=== PATIENT | male | born 1955 | race Two or more races ===

== ENCOUNTER 2016-06-17 06:49 | Observation (INO) | payer OTHER ==
[2016-06-17] MEDS ORDERED: ASPIRIN EC 325 MG TAB PO ONE ×2 (06:54→07:29)
[2016-06-17] MEDS ORDERED: NS 1,000 ML IV ONE (06:54)
[2016-06-17] MEDS ORDERED: FAMOTIDINE 20 MG TAB PO ONE (06:54)
[2016-06-17] MEDS ORDERED: diphenhydrAMINE 25 MG CAP PO ONE ×2 (06:54→07:29)
[2016-06-17] MEDS ORDERED: DIAZEPAM 5 MG TAB PO ONE (06:54)
--- NOTE | 2016-06-17 07:15 | CPEKG ---
Heart Rate: 136 RR Interval: 441 QRSD Interval: 84 QT Interval: 344 QTC Interval: 518 QRS [place]: 40 T Wave [place]: -30 EKG Severity - ABNORMAL ECG - EKG Impression: ATRIAL FIBRILLATION EKG Impression: VENTRICULAR PREMATURE COMPLEX EKG Impression: LOW VOLTAGE THROUGHOUT EKG Impression: BORDERLINE T ABNORMALITIES, INFERIOR LEADS Electronically Signed By: Salvatore Mcgovern 17-Jun-2016 15:41:51
[2016-06-17] MEDS ORDERED: FAMOTIDINE 20 MG TAB ONE (07:29)
[2016-06-17] MEDS ORDERED: DIAZEPAM 5 MG TAB ONE (07:29)
[2016-06-17 07:36] LABS: % IMMATURE GRANULYOCYTES 0.4 % (0.0-1.1); ABSOLUTE IMMATURE GRANULOCYTES 0.02 10^3/uL (0.00-0.10); ADD DIFF? NO; ADD MORPH? YES; ADD SCAN? NO; ATYPICAL LYMPHOCYTE FLAG 20 (0-99); FRAGMENT RBC FLAG 20 (0-99); HEMOGLOBIN 9.2 g/dL (13.7-17.5); LEFT SHIFT FLG 0 (0-99); LIPEMIA HEMOLYSIS FLAG 70 (0-99); MEAN CELL HEMOGLOBIN 19.3 pg (27.9-34.1); MEAN PLATELET VOLUME 10.5 fL (8.7-11.7); PLATELET CLUMPS FLAG 20 (0-99); PLATELET COUNT 183 10^3/uL (150-400); RED BLOOD CELL COUNT 4.77 10^6/uL (4.40-6.38); RED CELL DISTRIBUTION WIDTH 19.6 % (11.5-15.2)
[2016-06-17 07:44] LABS: MEAN CELL HEMOGLOBIN CONCENTR. 28.8 g/dL (32.4-36.7); MEAN CELL VOLUME 67.1 fL (81.5-99.8)
[2016-06-17 07:46] LABS: INR 1.19 (0.83-1.16); PROTIME(PATIENT) 15.1 SEC (12.0-15.0)
[2016-06-17 07:59] LABS: ANION GAP 11 mEq/L (8-16); CALCIUM 8.6 mg/dL (8.5-10.4); CARBON DIOXIDE 25 mEq/l (22-31); CHLORIDE 106 mEq/L (97-110); CHOLESTEROL 137 mg/dL (140-220); CHOLESTEROL/HDL RATIO 5.96 RATIO (1.00-4.97); CREATININE 0.7 mg/dL (0.7-1.3); GLOMERULAR FILTRATION RATE > 60; GLUCOSE 179 mg/dL (70-100); HIGH DENSITY LIPOPROTEIN 23 mg/dL (40-65); LDL/HDL RATIO 4.22 RATIO (1.00-3.64); LOW DENSITY LIPOPROTEIN 97 mg/dL (80-100); NON-HIGH DENSITY LIPOPROTEIN 114 mg/dL (90-129); POTASSIUM 4.5 mEq/L (3.5-5.2); SODIUM 142 mEq/L (134-144); TRIGLYCERIDE 88 mg/dL (40-150); VERY LOW DENSITY LIPOPROTEINS 17 mg/dL (8-25)
[2016-06-17] MEDS ORDERED: fentaNYL 100 MCG/2 ML INJ ONE (08:15)
[2016-06-17] MEDS ORDERED: MIDAZOLAM 2 MG/2 ML VIAL ONE ×2 (08:15→09:56)
[2016-06-17] MEDS ORDERED: LIDOCAINE 1% 30 ML SDV ONE (08:15)
[2016-06-17] MEDS ORDERED: IOPAMIDOL (ISOVUE-370) 150 ML BTL IV ONE ×2 (08:16→08:18)
[2016-06-17 08:20] LABS: GIANT PLATELETS PRESENT; HYPOCHROMIA 2+; LARGE PLATELETS PRESENT; MICROCYTES 2+; PLATELET ESTIMATE ADEQUATE (ADEQ); POLYCHROMASIA 1+
[2016-06-17] MEDS ORDERED: ATROPINE SULFATE 1 MG/10 ML SYR ONE (10:35)
[2016-06-17] MEDS ORDERED: HYDROCODONE/APAP 5/325 TAB PO PRN (10:44)
[2016-06-17] MEDS ORDERED: ATROPINE SULFATE 1 MG/10 ML SYR IVP PRN (10:44)
[2016-06-17] MEDS ORDERED: ONDANSETRON 4 MG/2 ML VIAL IVP PRN (10:44)
[2016-06-17] MEDS ORDERED: NITROGLYCERIN 0.4 MG BTL SL PRN (10:44)
[2016-06-17] MEDS ORDERED: OXYCODONE/APAP 5/325 TAB PO PRN (10:44)
--- NOTE | 2016-06-17 11:39 | CPIP ---
[f rep st] INVASIVE CARDIAC PROCEDURE DATE OF PROCEDURE: 06/17/2016 PROCEDURES: 1. Coronary angiography. 2. Left ventriculography. 3. Right heart catheterization. 4. Abdominal aortography. 5. Left lower extremity angiography via contralateral approach with catheter placed in the left supe rficial femoral artery. 6. Right lower extremity angiography via ipsilateral approach with catheter placed in the right comm on iliac artery. INDICATION: 1. Dyspnea on exertion concerning for class 3 angina. 2. Limb pain concerning for claudication. ACCESS: Patient was prepped and draped in sterile fashion. 1% lidocaine was used to anesthetize the right inguinal region. A 7-Haitian introducer sheath was placed selectively into the right common fe moral artery via modified Seldinger technique. A 7-Haitian introducer sheath was also placed in the r ight common femoral vein via modified Seldinger technique. CORONARY ANGIOGRAPHY: A 6-Haitian JL4 was advanced to the left main coronary artery and images obtain ed. The left main coronary artery bifurcated into an LAD and circumflex coronary arteries. The left main coronary artery appeared normal. The left anterior descending coronary artery had mild luminal irregularities in the mid vessel. There was no stenosis greater than 5% the first diagonal artery w as a large vessel. The first diagonal artery appeared normal. The circumflex coronary artery is a l arge vessel, but was nondominant. Circumflex coronary artery had mild diffuse disease in the proxima l segments. There was no stenosis greater than 10%. The 1st OM artery was small and had an ostial 5 0% stenosis present. A 6-Haitian JR4 was advanced to the right coronary artery and images obtained. The right coronary artery is dominant. The right coronary artery had mild diffuse disease in the mid vessel. There was no stenosis greater than 15%. LEFT VENTRICULOGRAPHY: A 6-Haitian pigtail catheter was advanced in the left ventricle and images obt ained. Left ventricle was normal in size with reduced systolic function. Estimated ejection fractio n is 20%. There is global left ventricular hypokinesis. The left ventricular end-diastolic pressure was elevated at 30 mmHg. RIGHT HEART CATHETERIZATION: Right heart catheter was advanced in the right atrium and pressure obta ined. Right atrial pressure was 20 mmHg. The catheter was then advanced in the right ventricle and pressure obtained. The right ventricular pressure was 58/20 mmHg. The catheter was then advanced in the pulmonary artery and pressure obtained. The pulmonary artery pressure was 57/34 mmHg with a moriah n pulmonary artery pressure of 43 mmHg. The pulmonary capillary wedge pressure was 28 mmHg. Pulmona ry artery saturation was 29%. Femoral artery saturation was 86%. Cardiac index 1.76. Cardiac outpu t 4.06. ABDOMINAL AORTOGRAPHY: A 6-Haitian pigtail catheter was placed in the abdominal aorta. An image was obtained. The abdominal aorta had mild luminal irregularities in the mid to distal segments. It the n bifurcated into the left and right common iliac arteries. LEFT LOWER EXTREMITY ANGIOGRAPHY VIA CONTRALATERAL APPROACH WITH CATHETER ULTIMATELY PLACED IN THE LE FT SUPERFICIAL FEMORAL ARTERY: A Contra II catheter was advanced into the distal abdominal aorta and position verified by angiography. It was reformed into its usual position and used to selectively e ngage the left common iliac artery. The left common iliac artery bifurcated into an internal iliac a rtery and external iliac artery. The proximal segment of the left common iliac artery had a single d iscrete 20% stenosis present. The ostial segment of the left internal iliac artery had a single disc rete 20% stenosis present. The proximal portion of the left external iliac artery had a single discr ete 40% stenosis present. The catheter was then advanced into the left external iliac artery over a Glidewire and images obtained. The left external iliac artery turned into the left common femoral ar prudencio and then bifurcated into the superficial femoral artery and profunda femoral artery. The left c ommon femoral artery appeared free of any significant disease. The left profunda femoral artery appe ared free of any significant disease. A Glidewire was then advanced into the left superficial femora l artery and the Contra II catheter exchanged for a straight flush catheter. Images of the lower ext remity were then obtained. The left superficial femoral artery had mild diffuse disease throughout. There was no stenosis greater than 20%. The left superficial femoral artery turned into the poplite al artery, which is free of any significant disease. Below the knee, there is 3-vessel runoff. RIGHT LOWER EXTREMITY ANGIOGRAPHY VIA IPSILATERAL APPROACH WITH CATHETER PLACED IN THE RIGHT COMMON I LIAC ARTERY: The angled Glidewire was then advanced and the straight flush catheter was withdrawn in to the right common iliac artery and images obtained via hand injection. The right common iliac emelina ry bifurcated into an internal iliac artery and external iliac artery. The right common iliac artery had a proximal 20% stenosis present. The right internal iliac artery was diffusely diseased and had an ostial 30% stenosis present. The right external iliac artery had a proximal 20-30% stenosis pres ent. The right external iliac artery turned into the common femoral artery and then bifurcated into the superficial femoral artery and profunda femoral artery. The right common femoral artery is free of any significant disease. The right profunda femoral artery is free of any significant disease. T he right superficial femoral artery had mild diffuse disease throughout. In the proximal segment, th ere is a single discrete 20% stenosis present. In the mid to distal segment there is a single discre te 20% stenosis present. The right superficial femoral artery then turned into the popliteal artery. The popliteal artery was free of any significant disease. Below the knee there is 3-vessel runoff. COMPLICATIONS: None. CONCLUSIONS: 1. Mild coronary artery disease without flow limitation. 2. Severely reduced left ventricular systolic function with an estimated ejection fraction 20% and g lobal hypokinesis. 3. Marked pulmonary hypertension with a mean pulmonary artery pressure of 43 mmHg. The trans pulmon jose maria gradient was 15 mmHg indicating a component of left heart failure in addition to a primary pulmon jose maria hypertension component. 4. [id number] peripheral vascular disease without flow limitation. /[id number]/MODL
[2016-06-17] MEDS ORDERED: METOPROLOL SUCCINATE XR 100 MG TAB PO SCH (15:00)
[2016-06-17] MEDS: GABAPENTIN 300 MG CAP PO SCH ×2 (15:22→21:30)
[2016-06-17] MEDS: LISINOPRIL 20 MG TAB PO SCH (15:24)
--- NOTE | 2016-06-17 16:36 | SOAPPROG ---
SARAH Progress Note Assessment/Plan: Assessment: 61-year-old male presenting with atrial fibrillation with rapid ventricular response, cardiomyopathy as noted on left ventriculography today with left ventricular ejection fraction of 20%. No significant coronary artery disease noted. Most likely etiology for cardiomyopathy is tachycardia mediated myopathy , combined with alcohol induced cardiomyopathy. While he states that he has cut back on his alcohol intake he had 7 beers while watching the recent [employer] game. Majority of the episodes of wide complex tachycardia are consistent with atrial fibrillation with aberrancy though there are some episodes that are consistent with nonsustained ventricular tachycardia My recommendations are 1. Discontinue Tikosyn since it is not effective. Not using amiodarone because of his pre-existing lung disease. 2. Increase metoprolol from 150 mg a day to 100 mg twice a day, increase dosing further as tolerated. We will need to keep him in the hospital for the next several days to try and better control his ventricular rate. 3. Patient has quit smoking 2 weeks ago, he has been advised not to start again. 4. He has been asked to abstain from alcohol. 5. Place a life vest while medical therapy is being adjusted for the next 3 months. 6. If after 3 months left ventricular ejection fraction is less than 35%, consider implantation of a defibrillator. If ventricular rate is still not controlled, consider biventricular ICD implantation followed by AV node ablation. His case was discussed with Dr. Quintana. Because of arterial access Dr. Quintana would like to hold off on resuming anticoagulation for 24 hours, Xarelto should be resumed tomorrow evening. 06/17/16 16:36 Subjective: Patient known to me from prior clinic visit. Presented with cardiomyopathy, WCT seen on telemetry. Dr. Quintana asked me to visit with patient. His was present in the room for this discussion Objective: Vital Signs Temp Pulse Resp BP Pulse Ox 36.5 C 126 H 25 H 140/96 H 92 06/17/16 15:31 06/17/16 15:31 06/17/16 15:31 06/17/16 15:31 06/17/16 15:31 Laboratory Results 06/17/16 07:20 06/17/16 07:20 PT 15.1 SEC (12.0-15.0) H 06/17/16 07:20 INR 1.19 (0.83-1.16) H 06/17/16 07:20 - Time Spent With Patient Time Spent With Patient: 25 min - Pending Discharge Pending Discharge Within 24 Hours: No Pending Discharge Within 48 Hours: Yes Pending Discharge Date: 06/19/16 Pending Discharge Time: 11:00 Physical Exam - Physical Exam General Appearance: mild distress EENT: PERRL/EOMI Respiratory: decreased breath sounds Cardiac/Chest: irregularly irregular ICD10 Worksheet Patient Problems: Problems Problem Status Diagnosed Atrial fibrillation Acute Cardiomyopathy Acute - ICD10 Problem Qualifiers (1) Cardiomyopathy Qualifiers: Cardiomyopathy type: other Qualified Description: Other cardiomyopathy Qualifier Code(s): (I42.8) Other cardiomyopathies (2) Atrial fibrillation
[2016-06-17] MEDS: glipiZIDE 5 MG TAB PO SCH (18:11)
[2016-06-17] MEDS ORDERED: INSULIN GLARGINE 100 UNITS/ML SYRINGE SC SCH (21:00)
[2016-06-18] MEDS: glipiZIDE 5 MG TAB PO SCH ×2 (08:58→17:18)
[2016-06-18] MEDS: GABAPENTIN 300 MG CAP PO SCH ×2 (08:58→17:18)
[2016-06-18] MEDS: LISINOPRIL 20 MG TAB PO SCH ×2 (08:58→19:39)
[2016-06-18] MEDS ORDERED: Fluticasone/Vilanterol [Breo Ellipta 100-25 Mcg Inh] 1 EACH IH SCH (09:00)
[2016-06-18] MEDS ORDERED: ATORVASTATIN CALCIUM 10 MG TAB PO SCH (09:00)
[2016-06-18] MEDS ORDERED: PANTOPRAZOLE SODIUM 40 MG TAB PO SCH (09:00)
[2016-06-18] MEDS ORDERED: MULTIVITAMINS 1 EACH TAB PO SCH (09:00)
[2016-06-18] MEDS: METOPROLOL SUCCINATE XR 100 MG TAB PO SCH ×2 (09:02→19:38)
--- NOTE | 2016-06-18 14:18 | GDS ---
[f rep st] DISCHARGE SUMMARY PRIMARY PRIMER INSPECTOR: Dr. Salvatore Mcgovern. The patient is also under the care of Dr. Emanuel Quintana and Dr. Kaden Solomon. DISCHARGE DIAGNOSES: 1. Nonsustained ventricular tachycardia, discharge with LifeVest. 2. Nonischemic cardiomyopathy with an ejection fraction of 20%. 3. Atrial fibrillation. 4. Newly diagnosed hepatitis C. 5. Mild coronary artery disease. 6. Mild to moderate peripheral vascular disease. 7. Pulmonary hypertension. 8. Diabetes. 9. Hyperlipidemia. HOSPITAL COURSE: For detailed H and P, please see prior dictation. Briefly, Kelby Olmstead is a 61-year-old male with a history of atrial fibrillation and congestive heart failure. He was complaining of severe claudication and therefore, he was electively admitted for a left and right heart catheterization , as well as a peripheral angiogram. This was performed by Dr. Emanuel Quintana on June 17. He was found to have mild CAD with mild to moderate peripheral vascular disease. His ejection fraction was severely reduced with global hypokinesis and an ejection fraction of 20%. While being monitored on telemetry , he was having atrial fibrillation with rapid ventricular rates, as well as multiple runs of nonsustained ventricular tachycardia. His metoprolol was increased from 150 mg daily to 100 mg b.i.d. with an improvement in his rates. Tikosyn was discontinued because it was not working. He does have a history of tobacco and alcohol use. He states that he has not been drinking regularly, but did have at least 7 drinks during a football game a few weeks ago. His cardiomyopathy is thought to be related to tachycardia, as well as alcohol- induced. He had a consultation with Dr. Kaden Solomon, who felt like with lifestyle changes and adjustments in his medical therapy, his symptoms and ejection fraction would improve. During his angiogram, Dr. Quintana did receive a splash from the patient. He was tested for hepatitis C and was found to be positive. ID was consulted and requested outpatient consultation. PHYSICAL EXAMINATION: VITAL SIGNS: On the day of discharge blood pressure 112/ 76, heart rate 112, oxygen saturation 93% on 3 L, afebrile. LUNGS: Clear to auscultation. No wheezes, rhonchi, or crackles auscultated. CARDIAC: Irregular rate and rhythm without any significant murmurs, rubs, or gallops appreciated. EXTREMITIES: No evidence of edema. The right groin where access was obtained for the angiogram does show significant ecchymosis without hematoma or evidence of infection. DISCHARGE MEDICATIONS: Metoprolol succinate 100 mg b.i.d., Lipitor 10 mg daily , Neurontin 600 mg t.i.d., Lantus 30 units subcu at bedtime, lisinopril 20 mg b.i.d., multivitamin daily, Protonix 20 mg daily, albuterol p.r.n., Lasix 20 mg b.i.d., Xarelto 20 mg daily to be resumed today, amlodipine 2.5 mg daily, glipizide 5 mg b.i.d., metformin a 1000 mg b.i.d. and will be held for 48 hours post angiogram, Percocet 5/325 mg p.r.n. PLAN: Kelby will be discharged home pending receiving his LifeVest. He was found to have nonsustained ventricular tachycardia, as well as atrial fibrillation without rapid ventricular rates. His metoprolol was increased with an improvement in his rates. Tikosyn has been discontinued because it was not successful. Lifestyle modifications were discussed with him today. He needs to focus on weight loss, continuing to reduce his alcohol intake, and not to smoke. We will plan to reassess his ejection fraction in 3 months. He is currently scheduled for a limited echo on September 16 at 10 a.m. in our office. He will then follow up with Dr. Solomon on 09/19/2016 at 10:30 in our office. If his rates are not well controlled at that time, he would be a candidate for a Bi V ICD and AV abigail ablation. If his EF remains low, but his rates are well controlled he would be a candidate for an ICD at that time. He will follow up with Dr. Mcgovern on 07/01/2016 at 9:45. He is aware that he is to resume his Xarelto tonight. He will also hold his metformin for 48 hours post cath procedure. ID was consulted, and the patient has been given their information to call and schedule a consultation with Dr. Sander Lowry for newly identified hepatitis C. Greater than 30 minutes were spent coordinating the patient's care today. /[id number]/MODL MTDD
[2016-06-18 16:52] VITALS: BP 95/74; PULSE 106; RESP 20; TEMP 99; O2SAT 92
== END 2016-06-18 19:48 | disposition home or self-care (01) ==
LOC: FCATH 06:49 → F2W 10:19
PROVIDERS: ADMIT Internal Medicine Cardiovascular Disease; ATTEND Internal Medicine Cardiovascular Disease
PROC: 4A023N8 Measurement of Cardiac Sampling and Pressure, Bilateral, Percutaneous Approach (ICD-10-PCS; principal; 2016-06-17)
PROC: B2111ZZ Fluoroscopy of Multiple Coronary Arteries using Low Osmolar Contrast (ICD-10-PCS; 2016-06-17)
PROC: B2151ZZ Fluoroscopy of Left Heart using Low Osmolar Contrast (ICD-10-PCS; 2016-06-17)
PROC: 04HL33Z Insertion of Infusion Device into Left Femoral Artery, Percutaneous Approach (ICD-10-PCS; 2016-06-17)
PROC: 04HC33Z Insertion of Infusion Device into Right Common Iliac Artery, Percutaneous Approach (ICD-10-PCS; 2016-06-17)
DX: I47.2 Ventricular tachycardia (principal); I42.9 Cardiomyopathy, unspecified; R06.02 Shortness of breath; I27.2 Other secondary pulmonary hypertension; I73.9 Peripheral vascular disease, unspecified; I50.32 Chronic diastolic (congestive) heart failure; I48.91 Unspecified atrial fibrillation; I25.10 Atherosclerotic heart disease of native coronary artery without angina pectoris; B19.20 Unspecified viral hepatitis C without hepatic coma; E11.9 Type 2 diabetes mellitus without complications; E78.5 Hyperlipidemia, unspecified; F17.200 Nicotine dependence, unspecified, uncomplicated; J44.9 Chronic obstructive pulmonary disease, unspecified; I10 Essential (primary) hypertension; G47.30 Sleep apnea, unspecified; E66.01 Morbid (severe) obesity due to excess calories; Z79.01 Long term (current) use of anticoagulants; Z82.49 Family history of ischemic heart disease and other diseases of the circulatory system; Z68.42 Body mass index [BMI] 45.0-49.9, adult; Z98.1 Arthrodesis status
CPT/HCPCS: 36245; 36247; 75630; 75716; 93005; 93460; C1769; G0378; J1644; J1815; J2250; J3010; Q9967; J0461

== ENCOUNTER 2016-07-03 19:32 | Inpatient (IN) | payer OTHER ==
--- NOTE | 2016-07-03 19:46 | EDPHY ---
H & P HPI/ROS: CHIEF COMPLAINT: Tachycardia HISTORY OF PRESENT ILLNESS: This is a 61 year old male with a history of cardiomyopathy, atrial fibrillation and nonsustained ventricular tachycardia, with a LifePack maintenance craftsman, presenting via private vehicle with tachycardia. His maintenance craftsman has been going off all day. He is complaining of shortness of breath and anxiety but no chest pain. His cardiac keeps alarming today. He has been turning off the alarm before he is shocked, as his doctor recommended he not allow it to shock him while he is awake. He was admitted 2 weeks ago for similar sx and discharged home on metoprolol. The LifePack was placed on discharge. He had a cardiac catheterization on 06/15/2016 which revealed EF 20% and mild CAD. REVIEW OF SYSTEMS: A complete 10-point review of systems was performed and is negative except for those items mentioned in the HPI. Past Medical/Surgical History: Vtach, afib Cardiomyopathy Social History: Nonsmoker, Accountant Cost: Dr. Solomon Smoking Status: Current every day smoker Physical Exam: General Appearance: Alert, anxious Eyes: Pupils equal and round, no conjunctival pallor ENT, Mouth: Mucous membranes moist Neck: Normal inspection Respiratory: Lungs are clear to auscultation Cardiovascular: Irregular tachycardia Gastrointestinal: Abdomen is soft, distended and non-tender Neurological: A&O, nonfocal exam Skin: Warm and dry, no rash Extremities: Nontender Psychiatric: Anxious Constitutional: Initial Vital Signs Heart Rate 204 H 07/03/16 19:49 Respiratory Rate 30 H 07/03/16 19:49 Blood Pressure 104/88 H 07/03/16 19:49 O2 Sat (%) 94 07/03/16 19:49 O2 Delivery Mode Non-Rebreather Mask O2 (L/minute) 4 Allergies/Adverse Reactions: No Known Allergies Allergy (Unverified 08/02/13 07:16) Home Medications: Medication Instructions Recorded Albuterol [Proventil Inhaler HFA 1 - 2 puffs IH DAILY PRN 06/17/16 (*)] Atorvastatin Calcium [Lipitor 10 10 mg PO DAILY 06/17/16 mg (*)] Fluticasone/Vilanterol [Breo 1 each IH DAILY 06/17/16 Ellipta 100-25 Mcg INH] Insulin Glargine [Lantus 100 30 units SC HS 01/09/17 UNITS/ML (*)] Lisinopril [Zestril 20 mg (*)] 20 mg PO BID 06/17/16 Multivitamins [Multivitamin (*)] 1 each PO DAILY 06/17/16 Pantoprazole Sodium [Protonix 40mg 40 mg PO DAILY 06/17/16 (*)] Rivaroxaban [Xarelto 10mg (*)] 20 mg PO DAILY 06/17/16 glipiZIDE [Glipizide] 5 mg PO BIDMEAL 06/17/16 metFORMIN HCL [Glucophage 500 mg 1,000 mg PO BIDMEAL 06/17/16 (*)] oxyCODONE/APAP 5/325 [Percocet 1 tab PO Q6 PRN 06/17/16 5/325 (*)] Digoxin [Lanoxin 0.25 mg] 0.25 mg PO DAILY 07/03/16 Dofetilide [Dofetilide] 500 mg PO BID 07/03/16 Furosemide [Furosemide] 40 mg PO BID 07/03/16 Gabapentin [Gabapentin] 600 mg PO BID 07/03/16 Metoprolol Succinate Xr [Toprol Xl 100 mg PO DAILY 07/03/16 100 mg (*)] Medical Decision Making - Diagnostics EKG Interpretation: EKG interpreted by me reveals runs of nonsustained vtach alternating with atrial fibrillation. Imaging: Chest x-ray reviewed by Dr. Flores, radiology, reveals: Enlargement the cardiac silhouette, with small bilateral pleural effusions. ED Course/Re-evaluation: I saw this pt shortly after his arrival. He is quite anxious and his maintenance craftsman keeps alarming. On arrival the patient was placed on a maintenance craftsman , and moved to a resuscitation room. Monitor reveals an intermittent wide complex tachycardia, which is most c/w Vtach. BP is adequate. 150mg IV Amiodarone was administered for ventricular tachycardia. He was placed on an Amiodarone drip. Dr. Solomon, cardiology, was paged. I reviewed the patient's past medical notes. I removed the life pack and the patient's anxiety resolved. 1952: Reassessed patient. He tells me he on 2-3L oxygen at home. He is feeling slightly better after the amiodarone. 1958: Consulted with Dr. Solomon, cardiology. He is aware of the patient and agrees with the medication choice. He requests hospitalist admission and will see the patient in the hospital in the morning. I discussed this with the patient at this time and answered his questions. The patient's BP remains adequate, and he continues to feel better. The episodes of Vtach continue, but are less frequent and of shorter duration. 2040: Consulted with Dr. Pierre, hospitalist, who has spoken to Dr. Solomon, cardiology. Dr. Solomon will admit the patient to the ICU. Dr. Pierre will consult. This pt utilized 40 minutes of critical care time by me exclusive of unbundled procedures. Differential Diagnosis: Differential diagnosis includes does not limited to acute coronary syndrome, pulmonary edema, hypotension, sustained ventricular tachycardia, ventricular fibrillation. - Data Points Laboratory Results: Laboratory Results 07/03/16 19:48 07/03/16 19:48 Medications Given: Discontinued Medications Amiodarone HCl (Amiodarone Hcl) 400 mg PO BID DULCE MARIA Stop: 12/31/16 20:59 Last Admin: 07/04/16 19:51 Dose: 400 mg Digoxin (Lanoxin) 250 mcg PO DAILY DULCE MARIA Stop: 12/31/16 08:59 Last Admin: 07/04/16 08:51 Dose: 250 mcg Furosemide (Lasix) 40 mg PO BID DULCE MARIA Stop: 12/31/16 08:59 Last Admin: 07/04/16 08:51 Dose: 40 mg Gabapentin (Neurontin) 600 mg PO TID DULCE MARIA Stop: 12/30/16 21:59 Last Admin: 07/04/16 08:50 Dose: 600 mg Amiodarone HCl (Amiodarone Hcl) 100 mls @ 600 mls/hr IV ONCE ONE Stop: 07/03/16 20:09 Last Admin: 07/03/16 19:46 Dose: 100 mls Amiodarone HCl (Amiodarone Hcl) 200 mls @ 33.333 mls/hr IV ONCE ONE PRN Reason: Protocol Stop: 07/04/16 01:59 Last Admin: 07/03/16 20:14 Dose: 200 mls Amiodarone HCl 540 mg/ (Dextrose) 300 mls @ 16.667 mls/hr IV ONCE ONE PRN Reason: Protocol Stop: 07/04/16 19:59 Last Admin: 07/04/16 01:40 Dose: 300 mls Sodium Chloride (Ns) 500 mls @ 0 mls/hr IV ONCE ONE PRN Reason: Wide Open Stop: 07/03/16 20:01 Last Admin: 07/03/16 20:00 Dose: 500 mls Amiodarone HCl (Amiodarone Hcl) 200 mls @ 33.333 mls/hr IV ONCE ONE PRN Reason: Protocol Stop: 07/04/16 07:59 Last Admin: 07/04/16 01:41 Dose: 200 mls Magnesium Sulfate/Dextrose (Magnesium Sulf 1 Gm (Premix)) 100 mls @ 100 mls/hr IV ONCE ONE Stop: 07/05/16 06:31 Last Admin: 07/05/16 06:26 Dose: 100 mls Magnesium Sulfate/Dextrose (Magnesium Sulf 1 Gm (Premix)) 100 mls @ 100 mls/hr IV ONCE ONE Stop: 07/06/16 08:10 Last Admin: 07/06/16 07:25 Dose: 100 mls Magnesium Sulfate/Dextrose (Magnesium Sulf 1 Gm (Premix)) 100 mls @ 100 mls/hr IV ONCE ONE Stop: 07/08/16 08:48 Last Admin: 07/08/16 09:08 Dose: 100 mls Metolazone (Zaroxolyn) 5 mg PO ONCE ONE Stop: 07/07/16 09:13 Last Admin: 07/07/16 09:39 Dose: 5 mg Metoprolol Succinate (Toprol Xl) 75 mg PO BID DULCE MARIA Stop: 12/30/16 22:59 Last Admin: 07/04/16 19:50 Dose: 75 mg Pneumococcal Polyvalent Vaccine (Pneumovax 23) 0.5 ml IM .ONCE ONE Stop: 07/05/16 16:47 Last Admin: 07/05/16 16:52 Dose: 0.5 ml Senna/Docusate Sodium (Senokot-S) 1 tab PO ONCE ONE Stop: 07/05/16 08:40 Last Admin: 07/05/16 09:06 Dose: 1 tab Departure - Departure Disposition: [facility] Acute Clinical Impression: Ventricular tachycardia Condition: Serious Report Scribed for: Gricelda Berry Report Scribed by: Erwin Acevedo Date of Report: 07/03/16 Time of Report: 19:50 Physician Review and Approval Statement: 07/03/16 19:51 Portions of this note were transcribed by a medical biller/coder. I personally performed a history, physical exam, medical decision making, and confirmed accuracy of information the transcribed note.
--- NOTE | 2016-07-03 19:51 | CPEKG ---
Heart Rate: 194 RR Interval: 309 QRSD Interval: 204 QT Interval: 384 QTC Interval: 691 QRS [place]: -83 T Wave [place]: 93 EKG Severity - ABNORMAL ECG - EKG Impression: Ventricular tachycardia alternating with atrial fibrillation EKG Impression: EXTREME TACHYCARDIA WITH WIDE COMPLEX, NO FURTHER RHYTHM ANALYSIS ATTEMPTED Electronically Signed By: Gricelda Berry 03-Jul-2016 21:40:22
[2016-07-03] MEDS ORDERED: NS 500 ML IV ONE (20:00)
[2016-07-03] MEDS ORDERED: AMIODARONE A.FIB-LOAD DOSE(ORDER 1/3) IV ONE (20:00)
[2016-07-03] MEDS ORDERED: AMIODARONE A.FIB-6HR INFSN (ORDER 2/3) IV ONE (20:00)
[2016-07-03 20:07] LABS: % IMMATURE GRANULYOCYTES 0.2 % (0.0-1.1); ABSOLUTE IMMATURE GRANULOCYTES 0.02 10^3/uL (0.00-0.10); ADD DIFF? NO; ADD MORPH? YES; ADD SCAN? NO; ATYPICAL LYMPHOCYTE FLAG 10 (0-99); FRAGMENT RBC FLAG 20 (0-99); HEMATOCRIT 32.4 % (40.0-51.0); LEFT SHIFT FLG 0 (0-99); LIPEMIA HEMOLYSIS FLAG 70 (0-99); MEAN CELL HEMOGLOBIN 18.9 pg (27.9-34.1); MEAN PLATELET VOLUME 10.5 fL (8.7-11.7); PLATELET CLUMPS FLAG 20 (0-99); PLATELET COUNT 229 10^3/uL (150-400); RED BLOOD CELL COUNT 4.75 10^6/uL (4.40-6.38)
[2016-07-03 20:08] LABS: MEAN CELL HEMOGLOBIN CONCENTR. 27.8 g/dL (32.4-36.7); MEAN CELL VOLUME 68.2 fL (81.5-99.8)
[2016-07-03 20:11] LABS: ANION GAP 15 mEq/L (8-16); CALCIUM 8.8 mg/dL (8.5-10.4); CARBON DIOXIDE 25 mEq/l (22-31); CHLORIDE 103 mEq/L (97-110); CREATININE 1.1 mg/dL (0.7-1.3); GLOMERULAR FILTRATION RATE > 60; GLUCOSE 192 mg/dL (70-100); POTASSIUM 4.4 mEq/L (3.5-5.2); SODIUM 143 mEq/L (134-144)
--- NOTE | 2016-07-03 20:16 | DX ---
PA and lateral chest. July 03, 2016 at 2007. Clinical History: Chest pain Comparison Study: None available. Findings: Marked enlargement of the cardiac silhouette compatible with cardiomegaly or pericardial ef fusion. Small bilateral pleural effusions. No focal infiltrate.. Prior cervical spine surgery. Impression: Enlargement the cardiac silhouette, with small bilateral pleural effusions.
[2016-07-03] MEDS ORDERED: NS 1,000 ML IV SCH (20:20)
[2016-07-03 20:23] LABS: TROPONIN I 0.015 ng/mL (0-0.034)
[2016-07-03 20:37] LABS: MICROCYTES 2+
[2016-07-03 20:38] LABS: HYPOCHROMIA 2+; PLATELET ESTIMATE ADEQUATE (ADEQ)
[2016-07-03] MEDS ORDERED: OXYCODONE/APAP 5/325 TAB PO PRN (21:57)
[2016-07-03] MEDS ORDERED: ALBUTEROL 60 PUFFS/8 GM MDI IH PRN (22:28)
--- NOTE | 2016-07-03 22:32 | PDCARCONS ---
Cardiology Consult Reason for Consult: Congestive heart failure. Ventricular tachycardia. Atrial fibrillation with rapid ventricular response Chief Complaint: External defibrillator is alarming Requesting Physician: Dr. Gricelda Berry History of Present Illness: 61-year-old male well known to me from prior hospital visit. Please refer to my note from last month for further details. Patient called me stating that his life vest was alarming and he was more short of breath than usual. Therefore I advised him to come to the emergency department. Dr. Gricelda Berry initially evaluated the patient and the patient was given intravenous amiodarone. Patient was recently diagnosed with nonischemic cardiomyopathy and therefore was discharged home with a life vest. I have reviewed his LifeVest strips from yesterday earlier this morning, these are consistent with mainly atrial fibrillation with rapid ventricular response also short episodes of ventricular tachycardia. Patient was evaluated in the emergency department, his and his oldest daughter were present for this interview. He denies any exertional chest pain. He does report shortness of breath which is about at baseline, maybe slightly worse at home but improved since coming to the emergency department and receiving amiodarone. He has not had syncope. History Information - Allergies/Home Medication List Allergies/Adverse Reactions: No Known Allergies Allergy (Unverified 08/02/13 07:16) Home Medications: Albuterol [Proventil Inhaler HFA (*)] 1 - 2 puffs IH DAILY PRN 06/17/16 [Last Taken Unknown] Atorvastatin Calcium [Lipitor 10 mg (*)] 10 mg PO DAILY 06/17/16 [Last Taken ] Fluticasone/Vilanterol [Breo Ellipta 100-25 Mcg INH] 1 each IH DAILY 06/17/16 [ Last Taken 07/03/16] Gabapentin [Neurontin 300 MG (*)] 600 mg PO TID 06/17/16 [Last Taken 06/16/16 21 :00] Insulin Glargine [Lantus 100 UNITS/ML (*)] 30 units SC HS 06/17/16 [Last Taken 07/02/16] Lisinopril [Zestril 20 mg (*)] 20 mg PO BID 06/17/16 [Last Taken 07/03/16] Multivitamins [Multivitamin (*)] 1 each PO DAILY 06/17/16 [Last Taken 07/03/16] Pantoprazole Sodium [Protonix 40mg (*)] 40 mg PO DAILY 06/17/16 [Last Taken ] Rivaroxaban [Xarelto 10mg (*)] 20 mg PO DAILY 06/17/16 [Last Taken 07/03/16] glipiZIDE [Glipizide] 5 mg PO BIDMEAL 06/17/16 [Last Taken 07/03/16] metFORMIN HCL [Glucophage 500 mg (*)] 1,000 mg PO BIDMEAL 06/17/16 [Last Taken 06/15/16 18:00] oxyCODONE/APAP 5/325 [Percocet 5/325 (*)] 1 tab PO Q6 PRN 06/17/16 [Last Taken 2 Days Ago] Digoxin [Lanoxin 0.25 mg] 0.25 mg PO DAILY 07/03/16 [Last Taken 07/03/16] Dofetilide [Dofetilide] 500 mg PO BID 07/03/16 [Last Taken 07/03/16] Furosemide [Furosemide] 40 mg PO BID 07/03/16 [Last Taken Unknown] Gabapentin [Gabapentin] 600 mg PO BID 07/03/16 [Last Taken 07/03/16] Metoprolol Succinate Xr [Toprol Xl 100 mg (*)] 100 mg PO DAILY 07/03/16 [Last Taken 07/03/16] I have personally reviewed and updated: family history, medical history, social history, surgical history - Social History Smoking Status: Current every day smoker Physical Exam Temp Pulse Resp BP Pulse Ox 78 16 90/51 L 100 07/03/16 20:30 07/03/16 20:30 07/03/16 20:30 07/03/16 20:30 Eyes: PERRL, anicteric sclera, EOMI Ears, Nose, Mouth, Throat: moist mucous membranes, hearing normal Cardiovascular: systolic murmur, irregularly irregular Respiratory: respiratory distress (Mild respiratory distress) Gastrointestinal: normoactive bowel sounds, soft, non-tender abdomen Neurologic: AAOx3 Psychiatric: interacting appropriately, not anxious, thought process linear Lab and Imaging 07/03/16 19:48 07/03/16 19:48 WBC 8.01 10^3/uL (3.80-9.50) 07/03/16 19:48 RBC 4.75 10^6/uL (4.40-6.38) 07/03/16 19:48 Hgb 9.0 g/dL (13.7-17.5) L 07/03/16 19:48 POC Hgb 11.2 gm/dL (14.5-17.3) L 07/03/16 19:45 Hct 32.4 % (40.0-51.0) L 07/03/16 19:48 POC Hct 33 % (42.8-50.6) L 07/03/16 19:45 MCV 68.2 fL (81.5-99.8) L 07/03/16 19:48 MCH 18.9 pg (27.9-34.1) L 07/03/16 19:48 MCHC 27.8 g/dL (32.4-36.7) L 07/03/16 19:48 RDW 20.0 % (11.5-15.2) H 07/03/16 19:48 Plt Count 229 10^3/uL (150-400) 07/03/16 19:48 MPV 10.5 fL (8.7-11.7) 07/03/16 19:48 Neut % (Auto) 54.5 % (39.3-74.2) 07/03/16 19:48 Lymph % (Auto) 29.5 % (15.0-45.0) 07/03/16 19:48 Stokes % (Auto) 12.9 % (4.5-13.0) 07/03/16 19:48 Eos % (Auto) 1.9 % (0.6-7.6) 07/03/16 19:48 Baso % (Auto) 1.0 % (0.3-1.7) 07/03/16 19:48 Nucleat RBC Rel Count 0.0 % (0.0-0.2) 07/03/16 19:48 Absolute Neuts (auto) 4.37 10^3/uL (1.70-6.50) 07/03/16 19:48 Absolute Lymphs (auto) 2.36 10^3/uL (1.00-3.00) 07/03/16 19:48 Absolute Monos (auto) 1.03 10^3/uL (0.30-0.80) H 07/03/16 19:48 Absolute Eos (auto) 0.15 10^3/uL (0.03-0.40) 07/03/16 19:48 Absolute Basos (auto) 0.08 10^3/uL (0.02-0.10) 07/03/16 19:48 Absolute Nucleated RBC 0.00 10^3/uL (0-0.01) 07/03/16 19:48 Immature Gran % 0.2 % (0.0-1.1) 07/03/16 19:48 Immature Gran # 0.02 10^3/uL (0.00-0.10) 07/03/16 19:48 Platelet Estimate ADEQUATE (ADEQ) 07/03/16 19:48 Hypochromasia 2+ H 07/03/16 19:48 Microcytic Cells 2+ H 07/03/16 19:48 POC Sodium 142 mEq/L (134-144) 07/03/16 19:45 Sodium 143 mEq/L (134-144) 07/03/16 19:48 POC Potassium 4.3 mEq/L (3.3-5.0) 07/03/16 19:45 Potassium 4.4 mEq/L (3.5-5.2) 07/03/16 19:48 POC Chloride 101 mEq/L (96-108) 07/03/16 19:45 Chloride 103 mEq/L (97-110) 07/03/16 19:48 Carbon Dioxide 25 mEq/l (22-31) 07/03/16 19:48 Anion Gap 15 mEq/L (8-16) 07/03/16 19:48 POC BUN 30 mg/dL (7-23) H 07/03/16 19:45 BUN 28 mg/dL (7-23) H 07/03/16 19:48 Creatinine 1.1 mg/dL (0.7-1.3) 07/03/16 19:48 POC Creatinine 1.1 mg/dL (0.8-1.5) 07/03/16 19:45 Estimated GFR > 60 07/03/16 19:48 Glucose 192 mg/dL (70-100) H 07/03/16 19:48 POC Glucose 197 mg/dL (70-100) H 07/03/16 19:45 Calcium 8.8 mg/dL (8.5-10.4) 07/03/16 19:48 Troponin I 0.015 ng/mL (0-0.034) 07/03/16 19:48 NT-Pro-B Natriuret Pep 2820 pg/mL (0-125) H 07/03/16 19:48 Visualized and Interpreted Chest x-ray results: Yes Visualized and Interpreted EKG results: Yes EKG additional interpertation: Atrial fibrillation, salvos of ventricular tachycardia Telemetry: Atrial fibrillation, salvos of ventricular tachycardia A/P Assessment: 1. Nonischemic cardiomyopathy - likely etiology rate related and alcoholic cardiomyopathy. Recent coronary angiogram without significant obstructive coronary artery disease 2. Atrial fibrillation 3. Ventricular tachycardia 4. Morbid obesity 5. Diabetes mellitus 6. Alcohol abuse Plan: - antiarrhythmic drug therapy - Tikosyn was discontinued at last admission, metoprolol is not adequately controlling rates during atrial fibrillation, moreover he is having ventricular tachycardia. He has been started on IV amiodarone which will be continued overnight. He will be given oral amiodarone loading over the next several days. He and his family have been made aware of side effects of amiodarone including potential lung and liver toxicity and other toxicities. They understand that ventricular tachycardia is a life- threatening arrhythmia and that is why we are using amiodarone. -rate control-his metoprolol dose will be increased to 150 mg a day from 100 mg a day -will continue Xarelto for anticoagulation - In the long term acute care registered nurse will need BIVICD placement + AV node ablation, but will need to wait for 90 days post diagnosis of NICMP prior to doing this. If we cannot control his rate with amiodarone + beta cinthia, consider BIV pacemaker + AV node ablation and upgrading to BIVICD at 3 months - Patient has stopped ETOH and tobacco abuse. Needs to lose weight, d.w. him and his and daughter. - Medicine svc will manage diabetes
[2016-07-03] MEDS: GABAPENTIN 300 MG CAP PO SCH (23:32)
[2016-07-03] MEDS: METOPROLOL SUCCINATE XR 50 MG TAB PO SCH (23:41)
[2016-07-03] MEDS: INSULIN GLARGINE 100 UNITS/ML SYRINGE SC SCH (23:47)
[2016-07-04] MEDS ORDERED: AMIODARONE A.FIB-6HR INFSN (ORDER 2/3) IV ONE (02:00)
[2016-07-04] MEDS ORDERED: AMIODARONE A.FIB-18HR INFSN (ORDER 3/3) IV ONE (02:00)
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
[2016-07-04 06:56] LABS: % SATURATION 5 % (20-55); TOTAL IRON BINDING CAPACITY 398 ug/dL (260-490)
[2016-07-04 07:22] LABS: FERRITIN - BCH 15.4 ng/mL (17.9-464.0)
[2016-07-04] MEDS: PANTOPRAZOLE SODIUM 40 MG TAB PO SCH (08:48)
[2016-07-04] MEDS: METOPROLOL SUCCINATE XR 50 MG TAB PO SCH ×2 (08:48→19:50)
[2016-07-04] MEDS: RIVAROXABAN 20 MG TAB PO SCH (08:49)
[2016-07-04] MEDS: MULTIVITAMINS 1 EACH TAB PO SCH (08:50)
[2016-07-04] MEDS: glipiZIDE 5 MG TAB PO SCH ×2 (08:50→18:28)
[2016-07-04] MEDS: GABAPENTIN 300 MG CAP PO SCH ×3 (08:50→19:49)
[2016-07-04] MEDS: LISINOPRIL 20 MG TAB PO SCH ×2 (08:51→19:49)
[2016-07-04] MEDS: ATORVASTATIN CALCIUM 10 MG TAB PO SCH (08:51)
[2016-07-04] MEDS ORDERED: FUROSEMIDE 40 MG TAB PO SCH (09:00)
[2016-07-04] MEDS ORDERED: METOPROLOL SUCCINATE XR 100 MG TAB PO SCH (09:00)
[2016-07-04] MEDS ORDERED: DIGOXIN 250 MCG TAB PO SCH (09:00)
[2016-07-04] MEDS ORDERED: RIVAROXABAN 10 MG TAB PO SCH (09:00)
[2016-07-04] MEDS: Fluticasone/Vilanterol [Breo Ellipta 100-25 Mcg Inh] 1 EACH IH SCH (09:33)
[2016-07-04] MEDS ORDERED: PROTOCOL POTASSIUM 1 DOSE MISC PRN (11:54)
[2016-07-04] MEDS ORDERED: PROTOCOL MAGNESIUM 1 DOSE IV PRN (11:54)
--- NOTE | 2016-07-04 12:01 | PDCARPN ---
Cardiology Progress Note Assessment/Plan: Assessment/plan: 61 yo M with NICMP (possibly related to uncontrolled AF); AF, VT, DM admitted 07/03 after Life Vest shock. Found to have salvos of VT in the ED. Amio IV load started. No evidence of ischemia. No sig CAD on recent cath. Also appears to be in systolic heart failure 1. VT: monomorphic and frequent. Amiodarone IV load and transition to oral. Patient and understand potential toxicities associated with amiodarone. Electrolyte protocols. Check dig level. Will need biV ICD after 90 days of optimally tolerated medical therapy for his CMP. May need to consider biV PPM with AV node ablation prior to 90 days if cannot control V rates in AF. 2. Acute on chronic systolic heart failure: likely related to AF. Patient reports abstinence from alcohol for several weeks. Toprol has been uptitrated. On max dose lisinopril. Add spironolactone. IV lasix today. 3. AF: on Xarelto. Increase BB. On dig, check level. 4. DM: per IM 5. Anemia: chronic, no active bleeding 6. HCV: recent dx 7. Morbid obesity: Patient currently in ICU with one to one RN monitoring, will require > 2 midnights to stabilized medical conditions 07/04/16 12:04 Subjective: Kelby is significantly SOB with exertion. Denies presyncope at rest, syncope, or palpitations. Has not had recent fever, chills, nausea, vomiting, diarrhea. Reviewed/Discussed With: family, multidisciplinary team Objective: Vital Signs (8 Hrs) Temp Pulse Resp BP Pulse Ox 07/04/16 10:00 166 H 16 135/90 H 99 07/04/16 08:00 37.2 C 98 16 114/59 L 96 07/04/16 06:00 109 H 23 H 121/55 H 99 07/04/16 04:00 120 H 16 103/70 97 Intake/Output (24 Hrs) 07/03/16 07/04/16 07/05/16 05:59 05:59 05:59 Intake Total 1604 Balance 1604 Intake: Oral (ml) 600 IV Infused (ml) 1004 Amiodarone HCl 540 mg In 254 D5w 300 ml @ 16.667 mls/ hr IV ONCE ONE Rx#: [id number] Other: Weight 132.9 kg Intake Quantity Yes Sufficient Number of Voids Toilet 2 NAD JVP 14 RRR no m/r/g/. occ ectopy Decreased BS both bases abd obese, soft, NT, no obvious masses Ext warm and well perfused. trace ankle edema bilaterally Result Diagrams: 07/03/16 19:48 07/03/16 19:48 EKG: AF with salvos of VT Telemetry: Salvos of monomorhphic VT ICD10 Worksheet Patient Problems: Problems Problem Status Diagnosed Ventricular tachycardia Acute Atrial fibrillation Acute Cardiomyopathy Acute
[2016-07-04] MEDS: SPIRONOLACTONE 25 MG TAB PO SCH (14:23)
[2016-07-04] MEDS: FUROSEMIDE 40 MG/4 ML VIAL IVP SCH (14:25)
--- NOTE | 2016-07-04 14:53 | GCON ---
[f rep st] CONSULTATION PULMONARY CONSULT. DATE OF CONSULTATION: 07/04/2016 HISTORY OF PRESENT ILLNESS: The patient is a 61-year-old male with cardiomyopathy and congestive hea rt failure with an ejection fraction of only 20% who has had recurrent ventricular tachycardia. He w as seen on a recent admission as well, and there were hopes that lifestyle improvements would change this. However, he was admitted yesterday with sustained ventricular tachycardia, though he was asymp tomatic. He was treated with amiodarone and metoprolol and has had short runs of ventricular tachyca rdia while on monitoring but, again, remains asymptomatic. He has a history of alcoholism. It is un clear to me how much alcohol he is actually drinking. This certainly may be a contributor to his cur rent situation. He also has a history of sleep apnea and says that he uses his CPAP device nightly a nd since starting it several years ago has been sleeping substantially better, and his family confirm s that history. He said that he had no chest pain. There has been no cough or sputum production. N o fevers, chills, or sweats. PAST MEDICAL HISTORY: Includes: 1. Ventricular tachycardia, as described above. 2. Atrial fibrillation with episodes of rapid ventricular response. 3. Congestive heart failure with an ejection fraction of 20%. 4. Peripheral arterial disease. 5. Hepatitis C. 6. Neuropathy. 7. Obstructive sleep apnea. 8. Hyperlipidemia. 9. Gastroesophageal reflux disease. 10. Diabetes. 11. Hypertension. SOCIAL HISTORY: He is an ongoing smoker. Again, I am not certain about the alcohol content, but no recreational drugs. FAMILY HISTORY: Noncontributory at this time. MEDICATIONS: Include Neurontin, Lantus, glipizide, metformin, lisinopril, Norvasc, Xarelto, multivit porter, Breo, Lasix, and Lipitor. PHYSICAL EXAMINATION: VITAL SIGNS: His blood pressure is 105/75 with a mean of 85. Heart rate is 7 4. Respirations 16. Oxygen saturation 99% on 3 L. GENERAL: He was obese but in no apparent distre ss. Awake, alert, and oriented x3. Able to speak in full sentences without using accessory muscles for breathing. HEENT: Pupils equally round and reactive to light, nonicteric and noninjected. Muco us membranes are moist without erythema or exudate. He was missing several teeth. NECK: Supple wit hout adenopathy. I did not detect jugular vein distention. LUNGS: Breath sounds were clear to ausc ultation bilaterally without wheeze, rubs, or rales. HEART: Appeared irregular to me, was muffled, and I did not detect any murmurs. ABDOMEN: Soft, nontender, and nondistended without hepatosplenome zackery. EXTREMITIES: No clubbing, cyanosis, or edema. NEUROLOGIC: Nonfocal, including cranial nerve s and deep tendon reflexes. SKIN: Warm and dry without rash. LABORATORY STUDIES: Objective data includes a white count of 8, hematocrit 32, platelets 229. Basic metabolic panel was essentially normal. Creatinine was 1.1. BNP was 2820. Chest x-ray shows small bilateral effusions. ASSESSMENT AND PLAN: 1. Recurrent ventricular tachycardia that does not appear to be medically controlled. Cardiology is following. Amiodarone drip was started. He is getting metoprolol as well. He will eventually need a biventricular ICD, assuming this becomes under control. Defer to Cardiology for further managemen t. 2. Diabetes. He is getting glipizide and Lantus at this time. I believe he was on metformin as an outpatient. He may need that as well, but his blood sugar is reasonably controlled at this time. 3. Obstructive sleep apnea. He brought his own device in and continuing to use that at this time. I will further discuss with him the value of Breo, but we may want to restart that as well. /[id number]/MODL
[2016-07-04 15:33] LABS: MAGNESIUM 1.6 mg/dL (1.6-2.3); POTASSIUM 4.4 mEq/L (3.5-5.2)
--- NOTE | 2016-07-04 18:03 | HOSPPROG ---
Hospitalist Progress Note Assessment/Plan: 61 yo M with hx of ischemic cardiomyopathy with EF of 20% presenting with runs of VT # VT: monomorphic and fairly frequent, has lifevest at home, amio loaded and transitioning to oral, monitoring on tele # acute on chronic systolic heart failure: EF of 20% as above. Life vest at home and consider bivICD in 90 days pending clinical course. Continue IV lasix, caity i, aldactone, statin, bb. [place] to be likely 2/2 AF # AF: on xarelto and dig and now amiodarone, monitoring on tele as above. On personal review of ecg appears to have VT alternating with AF # etoh absue: in remission # DM: continue op meds # hep c # morbid obesity # IP status, high risk presenting issues requiring ICU care Patient new to my care. Old records reviewed and summarized as above. Care plan reviewed with cardiology. Subjective: no significant overnight events, patient reports that he feels fine and really never had any sxs to speak of Objective: Vital Signs Temp Pulse Resp BP Pulse Ox 36.7 C 80 14 112/61 97 07/04/16 14:00 07/04/16 16:00 07/04/16 16:00 07/04/16 16:00 07/04/16 16:00 Laboratory Results 07/04/16 14:30 07/03/16 07/04/16 07/05/16 05:59 05:59 05:59 Intake Total 1604 Balance 1604 obese awake alert anicteric op clear irreg irreg distant no mrg cta dec bs at bases soft nt nd trace ble edema warm dry well perfused oriented appropirate ICD10 Worksheet Patient Problems: Problems Problem Status Diagnosed Ventricular tachycardia Acute Atrial fibrillation Acute Cardiomyopathy Acute
[2016-07-04 18:26] LABS: POTASSIUM 4.5 mEq/L (3.5-5.2)
[2016-07-04] MEDS: INSULIN GLARGINE 100 UNITS/ML SYRINGE SC SCH (19:51)
[2016-07-04] MEDS ORDERED: INSULIN GLARGINE 100 UNITS/ML SYRINGE SC SCH (21:00)
[2016-07-04] MEDS ORDERED: AMIODARONE HCL 200 MG TAB PO SCH (21:00)
[2016-07-05 05:09] LABS: % IMMATURE GRANULYOCYTES 0.3 % (0.0-1.1); ABSOLUTE IMMATURE GRANULOCYTES 0.02 10^3/uL (0.00-0.10); ADD DIFF? NO; ADD MORPH? YES; ADD SCAN? NO; ATYPICAL LYMPHOCYTE FLAG 10 (0-99); FRAGMENT RBC FLAG 20 (0-99); HEMATOCRIT 27.9 % (40.0-51.0); LEFT SHIFT FLG 0 (0-99); LIPEMIA HEMOLYSIS FLAG 70 (0-99); MEAN CELL HEMOGLOBIN 19.5 pg (27.9-34.1); PLATELET CLUMPS FLAG 20 (0-99); PLATELET COUNT 174 10^3/uL (150-400); RED CELL DISTRIBUTION WIDTH 19.6 % (11.5-15.2)
[2016-07-05 05:24] LABS: MEAN CELL HEMOGLOBIN CONCENTR. 28.7 g/dL (32.4-36.7)
[2016-07-05 05:30] LABS: ANION GAP 5 mEq/L (8-16); CALCIUM 8.6 mg/dL (8.5-10.4); CARBON DIOXIDE 30 mEq/l (22-31); CHLORIDE 104 mEq/L (97-110); CREATININE 0.8 mg/dL (0.7-1.3); GLOMERULAR FILTRATION RATE > 60; GLUCOSE 125 mg/dL (70-100); MAGNESIUM 1.7 mg/dL (1.6-2.3); POTASSIUM 4.3 mEq/L (3.5-5.2); SODIUM 139 mEq/L (134-144)
[2016-07-05] MEDS ORDERED: MAGNESIUM SULF 1 GM/DEXTROSE 100 ML IV ONE (05:32)
[2016-07-05 06:45] LABS: HYPOCHROMIA 2+; MICROCYTES 2+; POLYCHROMASIA 1+
[2016-07-05 06:46] LABS: PLATELET ESTIMATE ADEQUATE (ADEQ)
[2016-07-05] MEDS ORDERED: SENNOSIDES/DOCUSATE SODIUM TAB PO ONE (08:39)
[2016-07-05] MEDS: RIVAROXABAN 20 MG TAB PO SCH (08:57)
[2016-07-05] MEDS: LISINOPRIL 20 MG TAB PO SCH ×2 (08:57→21:10)
[2016-07-05] MEDS: GABAPENTIN 300 MG CAP PO SCH ×2 (08:58→21:09)
[2016-07-05] MEDS: METOPROLOL TARTRATE 100 MG TAB PO SCH ×2 (08:58→21:10)
[2016-07-05] MEDS: AMIODARONE HCL 200 MG TAB PO SCH ×3 (08:59→21:10)
[2016-07-05] MEDS: MULTIVITAMINS 1 EACH TAB PO SCH (08:59)
[2016-07-05] MEDS: FERROUS SULFATE 325 MG TAB PO SCH ×2 (08:59→21:10)
[2016-07-05] MEDS: ATORVASTATIN CALCIUM 10 MG TAB PO SCH (09:00)
[2016-07-05] MEDS: SPIRONOLACTONE 25 MG TAB PO SCH (09:00)
[2016-07-05] MEDS: PANTOPRAZOLE SODIUM 40 MG TAB PO SCH (09:00)
[2016-07-05] MEDS: glipiZIDE 5 MG TAB PO SCH ×2 (09:00→18:45)
[2016-07-05] MEDS: FUROSEMIDE 40 MG/4 ML VIAL IVP SCH ×2 (09:06→16:28)
--- NOTE | 2016-07-05 09:40 | SOAPPROG ---
SOAP Progress Note Assessment/Plan: Assessment/ Plan: 61 yo M with NICMP (possibly related to uncontrolled AF); AF, VT, DM admitted after Life Vest shock. Found to have salvos of VT in the ED. Amio IV load and then PO started. No evidence of ischemia. No sig CAD on recent cath. Also appears to be in systolic heart failure 1. VT: monomorphic and frequent. Will change to Amiodarone 400mg po tid. Will need biV ICD after 90 days of optimally tolerated medical therapy for his CMP. Improve rate control further with increase in Metoprolol 2. Acute on chronic systolic heart failure: likely related to AF. Patient reports abstinence from alcohol for several weeks. On max dose lisinopril. Add spironolactone. IV lasix today. will check weight and assess impact of the same. 3. AF: on Xarelto. Increase BB. 4. DM: per IM 5. Anemia: chronic, no active bleeding. Appears Fe deficient. will add Fe supplement 6. HCV: recent dx 7. Morbid obesity: 07/05/16 09:37 Subjective: Pt is doing well but still getting out of breath after coming back from bathroom Objective: Vital Signs Temp Pulse Resp BP Pulse Ox 36.8 C 81 18 107/63 94 07/04/16 20:00 07/05/16 06:00 07/05/16 06:00 07/05/16 06:00 07/05/16 06:00 Laboratory Results 07/05/16 04:55 07/05/16 04:55 07/04/16 07/05/16 07/06/16 05:59 05:59 05:59 Intake Total 1604 1381 Balance 1604 1381 Physical Exam - Physical Exam General Appearance: alert, no apparent distress EENT: PERRL/EOMI, normal ENT inspection Neck: non-tender, supple Respiratory: lungs clear, normal breath sounds, rales Cardiac/Chest: irregularly irregular Abdomen: non-tender, soft Skin: warm/dry Extremities: No pedal edema ICD10 Worksheet Patient Problems: Problems Problem Status Diagnosed Ventricular tachycardia Acute Atrial fibrillation Acute Cardiomyopathy Acute
[2016-07-05] MEDS: Fluticasone/Vilanterol [Breo Ellipta 100-25 Mcg Inh] 1 EACH IH SCH (10:19)
--- NOTE | 2016-07-05 14:13 | PDINTPN ---
[facility] Progress Note Assessment/Plan: Assessment/plan: * Persistent VT- increasing dose of PO amiodarone per cards. Tpolerating well without effect on pulmonary status (early alveolar filling, rare ARDS; late pneumonitis at skilled nursing high dose). * RADHA- tolerating CPAP without difficulty. * DM controlled * CHF with EF 20%- management per cards Objective: Vital Signs Temp Pulse Resp BP Pulse Ox 36.8 C 81 18 107/63 94 07/04/16 20:00 07/05/16 06:00 07/05/16 06:00 07/05/16 06:00 07/05/16 06:00 Laboratory Results 07/05/16 04:55 07/05/16 04:55 07/04/16 07/05/16 07/06/16 05:59 05:59 05:59 Intake Total 1604 1381 Balance 1604 1381 Physical Exam - Physical Exam General Appearance: alert, no apparent distress, obese EENT: PERRL/EOMI, normal ENT inspection Neck: full range of motion, supple Respiratory: lungs clear, normal breath sounds, No respiratory distress, No rales, No wheezing Cardiac/Chest: normal peripheral pulses, No edema Abdomen: normal bowel sounds, non-tender, soft Skin: normal color, warm/dry, No rash Lymphatic: no adenopathy Extremities: non-tender, No pedal edema Neuro/Psych: alert, normal mood/affect, oriented x 3 ICD10 Worksheet Patient Problems: Problems Problem Status Diagnosed Ventricular tachycardia Acute Atrial fibrillation Acute Cardiomyopathy Acute
--- NOTE | 2016-07-05 15:33 | HOSPPROG ---
Hospitalist Progress Note Assessment/Plan: 61 yo M with hx of ischemic cardiomyopathy with EF of 20% presenting with runs of VT # VT: monomorphic and fairly frequent, has lifevest at home, uptitrating oral amio as still with significant amount of ectopy on personal review of telemetry # acute on chronic systolic heart failure: EF of 20% as above. Life vest at home and consider bivICD in 90 days pending clinical course. Continue IV lasix, caity i, aldactone, statin, bb. [place] to be likely 2/2 AF. # AF: on xarelto and metoprolol, increasing dose as tolerated, monitoring on tele as above. # etoh absue: in remission # DM: continue op meds # hep c # morbid obesity # marko: on cpapa # IP status, high risk presenting issues requiring ICU care Subjective: no significant overnight events, patient continues to feel well and be relatively asymptomatic despite continued runs of vt Objective: Vital Signs Temp Pulse Resp BP Pulse Ox 36.8 C 81 18 107/63 94 07/04/16 20:00 07/05/16 06:00 07/05/16 06:00 07/05/16 06:00 07/05/16 06:00 Laboratory Results 07/05/16 04:55 07/05/16 04:55 07/04/16 07/05/16 07/06/16 05:59 05:59 05:59 Intake Total 1604 1381 Balance 1604 1381 obese awake alert anicteric op clear irreg irreg distant no mrg cta dec bs at bases soft nt nd trace ble edema warm dry well perfused oriented appropirate ICD10 Worksheet Patient Problems: Problems Problem Status Diagnosed Ventricular tachycardia Acute Atrial fibrillation Acute Cardiomyopathy Acute
[2016-07-05] MEDS ORDERED: PNEUMOCOCCAL 0.5ML VACCINE VIAL IM ONE (16:46)
[2016-07-05 17:30] LABS: POTASSIUM 4.4 mEq/L (3.5-5.2)
[2016-07-05] MEDS: INSULIN GLARGINE 100 UNITS/ML SYRINGE SC SCH (21:11)
[2016-07-06 06:33] LABS: MAGNESIUM 1.8 mg/dL (1.6-2.3); POTASSIUM 4.3 mEq/L (3.5-5.2)
[2016-07-06] MEDS ORDERED: MAGNESIUM SULF 1 GM/DEXTROSE 100 ML IV ONE (07:11)
[2016-07-06] MEDS: glipiZIDE 5 MG TAB PO SCH ×2 (07:25→18:00)
[2016-07-06] MEDS: METOPROLOL TARTRATE 100 MG TAB PO SCH ×2 (09:03→21:00)
[2016-07-06] MEDS: SPIRONOLACTONE 25 MG TAB PO SCH (09:03)
[2016-07-06] MEDS: AMIODARONE HCL 200 MG TAB PO SCH ×3 (09:04→21:00)
[2016-07-06] MEDS: RIVAROXABAN 20 MG TAB PO SCH (09:04)
[2016-07-06] MEDS: LISINOPRIL 20 MG TAB PO SCH ×2 (09:05→20:59)
[2016-07-06] MEDS: FERROUS SULFATE 325 MG TAB PO SCH ×2 (09:05→21:00)
[2016-07-06] MEDS: PANTOPRAZOLE SODIUM 40 MG TAB PO SCH (09:05)
[2016-07-06] MEDS: MULTIVITAMINS 1 EACH TAB PO SCH (09:06)
[2016-07-06] MEDS: ATORVASTATIN CALCIUM 10 MG TAB PO SCH (09:06)
[2016-07-06] MEDS: GABAPENTIN 300 MG CAP PO SCH ×2 (09:07→21:00)
[2016-07-06] MEDS: FUROSEMIDE 40 MG/4 ML VIAL IVP SCH ×2 (09:08→15:13)
[2016-07-06] MEDS: Fluticasone/Vilanterol [Breo Ellipta 100-25 Mcg Inh] 1 EACH IH SCH (09:10)
--- NOTE | 2016-07-06 10:28 | SOAPPROG ---
SOBHANU Progress Note Assessment/Plan: Assessment: 1. Nonischemic cardiomyopathy 2. Permanent Atrial fibrillation 3. Ventricular tachycardia 4. Morbid obesity 5. Diabetes mellitus 6. Alcohol abuse 7. Iron deficient anemia. No further VT. Still very SOB. Plan: 1. Continue IV diuresis. 2. Monitor I/O. 3. Consider transition to entresto from ACEi. 4. Investigate iron def anemia. 5. At this point I think he can transfer to tele. 07/06/16 10:30 Subjective: Pt seend and examined. The chart was reviewed. He still notes severe LOPEZ. SOB just with walking to the BR. No orthopnea. Tele- no recurrent VT. In AFIB. Objective: Vital Signs Temp Pulse Resp BP Pulse Ox 36.9 C 76 21 H 96/66 L 93 07/05/16 20:00 07/06/16 06:00 07/06/16 06:00 07/06/16 06:00 07/06/16 06:00 Laboratory Results 07/05/16 04:55 07/06/16 06:00 07/05/16 07/06/16 07/07/16 05:59 05:59 05:59 Intake Total 1381 1550 Balance 1381 1550 Laboratory Tests 07/03/16 07/04/16 19:48 14:30 NT-Pro-B Natriuret Pep 2820 H Digoxin 1.2 ICD10 Worksheet Patient Problems: Problems Problem Status Diagnosed Ventricular tachycardia Acute Atrial fibrillation Acute Cardiomyopathy Acute
--- NOTE | 2016-07-06 14:42 | PDINTPN ---
Engineering Surveyor Progress Note Assessment/Plan: Assessment/plan: * Persistent VT- in setting of afib (WPW?). Stable unless he ambulates though remains asymptomatic. * RADHA- tolerating CPAP without difficulty. * DM controlled * CHF with EF 20%- management per cards 07/06/16 14:40 Objective: Vital Signs Temp Pulse Resp BP Pulse Ox 36.5 C 75 16 100/53 L 98 07/06/16 12:00 07/06/16 12:00 07/06/16 12:00 07/06/16 12:00 07/06/16 12:00 Laboratory Results 07/05/16 04:55 07/06/16 06:00 07/05/16 07/06/16 07/07/16 05:59 05:59 05:59 Intake Total 1381 1550 Balance 1381 1550 Physical Exam - Physical Exam General Appearance: alert, no apparent distress, obese EENT: PERRL/EOMI, pharynx normal Neck: full range of motion, supple Respiratory: lungs clear, normal breath sounds, No respiratory distress, No rales, No rhonchi, No wheezing Cardiac/Chest: normal peripheral pulses, irregularly irregular Abdomen: normal bowel sounds, non-tender, soft Skin: normal color, warm/dry, No rash Lymphatic: no adenopathy Extremities: normal range of motion Neuro/Psych: alert, normal mood/affect, oriented x 3 ICD10 Worksheet Patient Problems: Problems Problem Status Diagnosed Ventricular tachycardia Acute Atrial fibrillation Acute Cardiomyopathy Acute
--- NOTE | 2016-07-06 15:40 | HOSPPROG ---
Hospitalist Progress Note Assessment/Plan: 61 yo M with hx of ischemic cardiomyopathy with EF of 20% presenting with runs of VT # VT: monomorphic and fairly frequent, has lifevest at home, ectopy seems to be decreasing on increased dose of amlodipine. Cardiology plans to transfer out of icu # acute on chronic systolic heart failure: EF of 20% as above. Life vest at home and consider bivICD in 90 days pending clinical course. Continue IV lasix, caity i, aldactone, statin, bb. [place] to be likely 2/2 AF. # AF: on xarelto and metoprolol, increasing dose as tolerated, monitoring on tele as above. # etoh absue: in remission # DM: continue op meds # chronic anemia: has been present for at least the last 6 months and stable, c/ w iron deficiency anemia by iron studies, very low mcv. Will check TSH and occult blood, will need OP colonoscopy if hasn't had one recently. # hep c # morbid obesity # marko: on cpapa # IP status, high risk presenting issues requiring ICU care Reviewed old records from hospitalization at [place] and [facility] records. Reviewed care plan with cardiology. Subjective: no significant overnight complaints, feeling well, no chest pain, not dizzy while walking Objective: Vital Signs Temp Pulse Resp BP Pulse Ox 36.5 C 84 18 106/44 L 96 07/06/16 12:00 07/06/16 14:00 07/06/16 14:00 07/06/16 14:00 07/06/16 14:00 Laboratory Results 07/05/16 04:55 07/06/16 06:00 07/05/16 07/06/16 07/07/16 05:59 05:59 05:59 Intake Total 1381 1550 Balance 1381 1550 obese awake alert anicteric op clear irreg irreg distant no mrg cta dec bs at bases soft nt nd trace ble edema warm dry well perfused oriented appropirate ICD10 Worksheet Patient Problems: Problems Problem Status Diagnosed Ventricular tachycardia Acute Atrial fibrillation Acute Cardiomyopathy Acute
[2016-07-06] MEDS: INSULIN GLARGINE 100 UNITS/ML SYRINGE SC SCH (21:00)
[2016-07-07 05:34] LABS: % IMMATURE GRANULYOCYTES 0.3 % (0.0-1.1); ABSOLUTE IMMATURE GRANULOCYTES 0.02 10^3/uL (0.00-0.10); ADD DIFF? NO; ADD MORPH? YES; ADD SCAN? NO; ATYPICAL LYMPHOCYTE FLAG 10 (0-99); FRAGMENT RBC FLAG 20 (0-99); HEMATOCRIT 27.7 % (40.0-51.0); HEMOGLOBIN 7.7 g/dL (13.7-17.5); LEFT SHIFT FLG 0 (0-99); LIPEMIA HEMOLYSIS FLAG 70 (0-99); MEAN CELL HEMOGLOBIN 19.5 pg (27.9-34.1); MEAN CELL VOLUME 70.3 fL (81.5-99.8); MEAN PLATELET VOLUME 10.6 fL (8.7-11.7); PLATELET CLUMPS FLAG 0 (0-99); PLATELET COUNT 151 10^3/uL (150-400); RED BLOOD CELL COUNT 3.94 10^6/uL (4.40-6.38); RED CELL DISTRIBUTION WIDTH 19.6 % (11.5-15.2)
[2016-07-07 05:35] LABS: MEAN CELL HEMOGLOBIN CONCENTR. 27.8 g/dL (32.4-36.7)
[2016-07-07 05:59] LABS: ANION GAP 7 mEq/L (8-16); CALCIUM 8.2 mg/dL (8.5-10.4); CARBON DIOXIDE 29 mEq/l (22-31); CHLORIDE 105 mEq/L (97-110); CREATININE 0.8 mg/dL (0.7-1.3); GLOMERULAR FILTRATION RATE > 60; GLUCOSE 113 mg/dL (70-100); MAGNESIUM 1.9 mg/dL (1.6-2.3); POTASSIUM 4.4 mEq/L (3.5-5.2); SODIUM 141 mEq/L (134-144)
[2016-07-07 06:09] LABS: PLATELET ESTIMATE ADEQUATE (ADEQ)
[2016-07-07 06:12] LABS: POLYCHROMASIA 1+
[2016-07-07 06:14] LABS: HYPOCHROMIA 2+; MICROCYTES 2+
[2016-07-07] MEDS: FUROSEMIDE 40 MG/4 ML VIAL IVP SCH ×2 (08:50→15:59)
[2016-07-07] MEDS: glipiZIDE 5 MG TAB PO SCH ×2 (08:51→18:14)
[2016-07-07] MEDS: MULTIVITAMINS 1 EACH TAB PO SCH (08:51)
[2016-07-07] MEDS: FERROUS SULFATE 325 MG TAB PO SCH ×2 (08:51→21:13)
[2016-07-07] MEDS: LISINOPRIL 20 MG TAB PO SCH ×2 (08:51→21:13)
[2016-07-07] MEDS: AMIODARONE HCL 200 MG TAB PO SCH ×3 (08:51→21:19)
[2016-07-07] MEDS: SPIRONOLACTONE 25 MG TAB PO SCH (08:51)
[2016-07-07] MEDS: METOPROLOL TARTRATE 100 MG TAB PO SCH ×2 (08:51→21:12)
[2016-07-07] MEDS: PANTOPRAZOLE SODIUM 40 MG TAB PO SCH (08:51)
[2016-07-07] MEDS: RIVAROXABAN 20 MG TAB PO SCH (08:51)
[2016-07-07] MEDS: ATORVASTATIN CALCIUM 10 MG TAB PO SCH (08:51)
[2016-07-07] MEDS: GABAPENTIN 300 MG CAP PO SCH ×2 (08:51→21:12)
[2016-07-07] MEDS ORDERED: METOLAZONE 5 MG TAB PO ONE (09:12)
[2016-07-07] MEDS: Fluticasone/Vilanterol [Breo Ellipta 100-25 Mcg Inh] 1 EACH IH SCH (09:40)
--- NOTE | 2016-07-07 13:51 | SOAPPROG ---
SARAH Progress Note Assessment/Plan: Assessment: 1. Nonischemic cardiomyopathy 2. Permanent Atrial fibrillation 3. Ventricular tachycardia 4. Morbid obesity 5. Diabetes mellitus 6. Alcohol abuse 7. Iron deficient anemia. He has shown a slight degree of improvement. His breathlessness is less significant than it has been previously although is still present. His ventricular tachycardia appears to be under control. Plan: 1. He will be transferred to the telemetry unit. 2. I have continued his IV diuretics and given him an additional dose of metolazone today. 3. At some point in near future, we may consider a transition over to Entresto. 4. Will follow his electrolytes carefully. 07/07/16 13:49 Subjective: He states he feels a little bit better today. Continues to have exertional dyspnea at low levels although feels this is improved. He is not experiencing any chest discomfort. He continues in chronic atrial fibrillation with no episodes of ventricular tachycardia. Objective: Vital Signs Temp Pulse Resp BP Pulse Ox 36.3 C 89 18 97/56 L 92 07/07/16 12:35 07/07/16 12:35 07/07/16 12:35 07/07/16 12:35 07/07/16 12:35 Laboratory Results 07/07/16 05:15 07/07/16 05:15 07/06/16 07/07/16 07/08/16 05:59 05:59 05:59 Intake Total 1550 1240 1000 Output Total 850 575 Balance 1550 390 425 Physical Exam - Physical Exam General Appearance: no apparent distress, obese Neck: non-tender Respiratory: lungs clear, crackles (Fine crackles in the left base) Cardiac/Chest: edema (1 quarter-inch pitting edema bilaterally to level of the mid campos), irregularly irregular, No gallop, No JVD Peripheral Pulses: 2+: carotid (R), carotid (L) ICD10 Worksheet Patient Problems: Problems Problem Status Diagnosed Ventricular tachycardia Acute Atrial fibrillation Acute Cardiomyopathy Acute
--- NOTE | 2016-07-07 15:45 | HOSPPROG ---
Hospitalist Progress Note Assessment/Plan: 61 yo M with hx of ischemic cardiomyopathy with EF of 20% presenting with runs of VT # VT: monomorphic and fairly frequent, has life vest at home, doing well on current dose of amlodipine. # acute on chronic systolic heart failure: EF of 20% as above. Life vest at home and consider bivICD in 90 days pending clinical course. Continue IV lasix, caity i, aldactone, statin, bb. [place] to be likely 2/2 AF. # AF: on xarelto and metoprolol, rate controlled # etoh absue: in remission # DM: continue op meds # chronic anemia: has been present for at least the last 6 months and stable, c/ w iron deficiency anemia by iron studies and should get OP colonoscopy after dc # hep c # morbid obesity # marko: on cpapa # IP status, high risk presenting issues Care plan reviewed with cardiology. Subjective: no significant overnight events, patient currently feeling fine, less sob Objective: Vital Signs Temp Pulse Resp BP Pulse Ox 36.4 C 77 22 H 105/62 99 07/07/16 15:17 07/07/16 15:17 07/07/16 15:17 07/07/16 15:17 07/07/16 15:17 Laboratory Results 07/07/16 05:15 07/07/16 05:15 07/06/16 07/07/16 07/08/16 05:59 05:59 05:59 Intake Total 1550 1240 1000 Output Total 850 575 Balance 1550 390 425 obese awake alert anicteric op clear irreg irreg distant no mrg cta dec bs at bases soft nt nd trace ble edema warm dry well perfused oriented appropirate ICD10 Worksheet Patient Problems: Problems Problem Status Diagnosed Ventricular tachycardia Acute Atrial fibrillation Acute Cardiomyopathy Acute
[2016-07-07] MEDS: INSULIN GLARGINE 100 UNITS/ML SYRINGE SC SCH (21:12)
[2016-07-08 05:46] LABS: ANION GAP 9 mEq/L (8-16); CALCIUM 9.1 mg/dL (8.5-10.4); CARBON DIOXIDE 31 mEq/l (22-31); CHLORIDE 98 mEq/L (97-110); GLOMERULAR FILTRATION RATE > 60; GLUCOSE 125 mg/dL (70-100); MAGNESIUM 1.8 mg/dL (1.6-2.3); POTASSIUM 4.5 mEq/L (3.5-5.2); SODIUM 138 mEq/L (134-144)
[2016-07-08] MEDS ORDERED: MAGNESIUM SULF 1 GM/DEXTROSE 100 ML IV ONE (07:49)
[2016-07-08] MEDS: Fluticasone/Vilanterol [Breo Ellipta 100-25 Mcg Inh] 1 EACH IH SCH (09:01)
[2016-07-08] MEDS: FUROSEMIDE 40 MG/4 ML VIAL IVP SCH ×2 (09:08→15:21)
[2016-07-08] MEDS: MULTIVITAMINS 1 EACH TAB PO SCH (09:09)
[2016-07-08] MEDS: glipiZIDE 5 MG TAB PO SCH ×2 (09:09→18:15)
[2016-07-08] MEDS: PANTOPRAZOLE SODIUM 40 MG TAB PO SCH (09:09)
[2016-07-08] MEDS: GABAPENTIN 300 MG CAP PO SCH ×2 (09:09→20:39)
[2016-07-08] MEDS: AMIODARONE HCL 200 MG TAB PO SCH (09:09)
[2016-07-08] MEDS: METOPROLOL TARTRATE 100 MG TAB PO SCH ×2 (09:09→20:38)
[2016-07-08] MEDS: ATORVASTATIN CALCIUM 10 MG TAB PO SCH (09:09)
[2016-07-08] MEDS: FERROUS SULFATE 325 MG TAB PO SCH ×2 (09:09→20:39)
[2016-07-08] MEDS: LISINOPRIL 20 MG TAB PO SCH ×2 (09:10→20:38)
[2016-07-08] MEDS: RIVAROXABAN 20 MG TAB PO SCH (09:10)
[2016-07-08] MEDS: SPIRONOLACTONE 25 MG TAB PO SCH (09:18)
--- NOTE | 2016-07-08 09:20 | CPEKG ---
Heart Rate: 109 RR Interval: 550 QRSD Interval: 94 QT Interval: 412 QTC Interval: 556 QRS [place]: 57 EKG Severity - ABNORMAL ECG - EKG Impression: ATRIAL FIBRILLATION EKG Impression: Nonsustained VT EKG Impression: LOW VOLTAGE IN FRONTAL LEADS EKG Impression: BORDERLINE T ABNORMALITIES, INFERIOR LEADS Electronically Signed By: Kaden Solomon 08-Jul-2016 10:43:29
--- NOTE | 2016-07-08 10:38 | PDCARPN ---
Cardiology Progress Note Chief Complaint: SOB Assessment/Plan: Assessment/Plan: 1. NCIMP with EF of 20%, ETOH versus tachycardic induced. Continue BB and LONG- I. If his EF remains low despite good rate control and ETOH cessation then he would be a candidate for a ICD. If he rates do not improve he would be a candidate for a BIV ICD and AV abigail ablation. 2. VT with recent shock- Amiodarone started this hospitalization. Still have WCT which is both VT and a.fib with aberrancy. Will decrease Amiodarone to 200mg daily. D/C with lifevest (will need new pads prior to d/c). 3. Systolic CHF- improved with Metolazone yesterday but still volume overloaded. Continue Lasix IV. If his EF remains low he would be a Entresto candidate. 4. Chronic atrial fibrillation- rates are well controlled with Amio and BB (HR 55-80 BPM). Continue Xarelto for CVA prophylaxis. 5. DM 6. Obesity- nutrition consult 7. Chronic anemia-per hospitalist 07/08/16 11:07 Subjective: Pt is still complaining of SOB. It has improved since admission but still present. Reviewed/Discussed With: hospitalist Objective: Vital Signs (8 Hrs) Temp Pulse Resp BP Pulse Ox 07/08/16 09:00 74 16 96 07/08/16 08:50 36.4 C 72 18 113/67 93 07/08/16 03:49 36.8 C 71 15 107/61 95 Intake/Output (24 Hrs) 07/07/16 07/08/16 07/09/16 05:59 05:59 05:59 Intake Total 1240 1900 Output Total 850 575 Balance 390 1325 Intake: Oral (ml) 1140 1900 IV Infused (ml) 100 Magnesium Sulf 1 gm/ 100 Dextrose 100 ml @ 100 mls /hr IV ONCE ONE Rx#: [id number] Output: Urine (ml) 850 575 Toilet 850 575 Other: Weight 128.3 kg Intake Quantity Yes Yes Sufficient Number of Voids Toilet 1 2 Number of Stools Toilet 1 tele- chronic a.fib with WCT Result Diagrams: 07/07/16 05:15 07/08/16 04:10 EKG: a.fib with WCT (likely a.fib with abberancy) - Physical Exam Constitutional: obese Cardiovascular: irregularly irregular Respiratory: inspiratory crackles (lung bases) Skin: no edema ICD10 Worksheet Patient Problems: Problems Problem Status Diagnosed Ventricular tachycardia Acute Atrial fibrillation Acute Cardiomyopathy Acute
--- NOTE | 2016-07-08 15:27 | HOSPPROG ---
Hospitalist Progress Note Assessment/Plan: 61 yo M with hx of ischemic cardiomyopathy with EF of 20% presenting with runs of VT # VT- monomorphic and frequent- has life vest at home-s/p amiodarone load telemetry (personally reviewed and interpreted) wide complex rhythm suspect AFib with aberrancy in the 70's - continue amiodarone - LifeVest being prepared for disposition # acute on chronic systolic heart failure- EF of 20% on last echo- Life vest at home - oxygen saturations 94% on 2 L - Continue IV lasix, - cont caity i, aldactone, statin, bb - repeat echo in 3 months and decisions related to bivICD or ablation at that time # atrial fibrillation- currently rate controlled - cont xarelto and metoprolol # ETOH abuse- abstinence important going forward # DM- continue home meds # chronic anemia- c/w iron deficiency anemia by iron studies - needs outpatient colonoscopy # hep c # morbid obesity # marko- on cpap # IP status, high risk presenting issues I have discussed the case with Cardiology we will continue IV diuresis while the patient is on the PCU- potential discharge as early as tomorrow is stable. Subjective: denies chest pain Objective: Vital Signs Temp Pulse Resp BP Pulse Ox 36.8 C 75 13 93/72 L 94 07/08/16 11:59 07/08/16 11:59 07/08/16 11:59 07/08/16 11:59 07/08/16 11:59 Laboratory Results 07/07/16 05:15 07/08/16 04:10 07/07/16 07/08/16 07/09/16 05:59 05:59 05:59 Intake Total 1240 1900 Output Total 850 575 Balance 390 1325 - Physical Exam Constitutional: obese Eyes: anicteric sclera Ears, Nose, Mouth, Throat: moist mucous membranes Cardiovascular: regular rate and rhythym, systolic murmur Respiratory: no respiratory distress, inspiratory crackles Gastrointestinal: normoactive bowel sounds, soft, non-tender abdomen Genitourinary: no bladder fullness Skin: warm, normal color Musculoskeletal: No asymmetric calves Neurologic: AAOx3 Psychiatric: interacting appropriately, not anxious Lymph, Heme, Immunologic: no cervical LAD ICD10 Worksheet Patient Problems: Problems Problem Status Diagnosed Ventricular tachycardia Acute Atrial fibrillation Acute Cardiomyopathy Acute
[2016-07-08] MEDS: INSULIN GLARGINE 100 UNITS/ML SYRINGE SC SCH (21:07)
[2016-07-09 05:53] LABS: ANION GAP 7 mEq/L (8-16); CALCIUM 9.1 mg/dL (8.5-10.4); CARBON DIOXIDE 31 mEq/l (22-31); CHLORIDE 100 mEq/L (97-110); CREATININE 0.9 mg/dL (0.7-1.3); GLOMERULAR FILTRATION RATE > 60; GLUCOSE 113 mg/dL (70-100); MAGNESIUM 1.9 mg/dL (1.6-2.3); POTASSIUM 4.5 mEq/L (3.5-5.2); SODIUM 138 mEq/L (134-144)
[2016-07-09] MEDS: GABAPENTIN 300 MG CAP PO SCH (08:00)
[2016-07-09] MEDS: METOPROLOL TARTRATE 100 MG TAB PO SCH (08:01)
[2016-07-09] MEDS: ATORVASTATIN CALCIUM 10 MG TAB PO SCH (08:01)
[2016-07-09] MEDS: FERROUS SULFATE 325 MG TAB PO SCH (08:01)
[2016-07-09] MEDS: LISINOPRIL 20 MG TAB PO SCH (08:01)
[2016-07-09] MEDS: PANTOPRAZOLE SODIUM 40 MG TAB PO SCH (08:02)
[2016-07-09] MEDS: glipiZIDE 5 MG TAB PO SCH (08:02)
[2016-07-09] MEDS: RIVAROXABAN 20 MG TAB PO SCH (08:02)
[2016-07-09] MEDS: SPIRONOLACTONE 25 MG TAB PO SCH (08:02)
[2016-07-09] MEDS: MULTIVITAMINS 1 EACH TAB PO SCH (08:03)
[2016-07-09] MEDS: FUROSEMIDE 40 MG/4 ML VIAL IVP SCH (08:03)
[2016-07-09] MEDS: Fluticasone/Vilanterol [Breo Ellipta 100-25 Mcg Inh] 1 EACH IH SCH (08:05)
[2016-07-09] MEDS ORDERED: AMIODARONE HCL 200 MG TAB PO SCH (09:00)
[2016-07-09 11:26] VITALS: BP 90/48; PULSE 76; RESP 16; TEMP 98.2; O2SAT 93
--- NOTE | 2016-07-09 11:53 | HOSPPROG ---
Hospitalist Progress Note Assessment/Plan: 61 yo M with hx of ischemic cardiomyopathy with EF of 20% presenting with runs of VT # VT- monomorphic and frequent- has life vest at home-s/p amiodarone load- feeling well this morning telemetry (personally reviewed and interpreted) wide complex rhythm suspect AFib with aberrancy remain in the 70's - continue amiodarone - LifeVest being prepared for disposition today # acute on chronic systolic heart failure- EF of 20% on last echo- Life vest at home - lungs clear on examination today- creatinine 0.9 oxygen saturations 93% on 2 L - Continue IV lasix - transition to p.o. discharge - cont caity i, Aldactone, statin, bb - repeat echo in 3 months and decisions related to bivICD or ablation at that time # atrial fibrillation- currently rate controlled - cont xarelto and metoprolol # ETOH abuse- abstinence important going forward # DM- continue home meds # chronic anemia- c/w iron deficiency anemia by iron studies - needs outpatient colonoscopy - DC on oral iron supplementation # hep c # morbid obesity # marko- on cpap # IP status, high risk presenting issues - anticipate disposition today to home I have discussed the case with Cardiology planning for discharge home today once LifeVest arranged. Subjective: feels very well denies chest pain or shortness of breath Objective: Vital Signs Temp Pulse Resp BP Pulse Ox 36.8 C 76 16 90/48 L 93 07/09/16 11:19 07/09/16 11:19 07/09/16 11:19 07/09/16 11:19 07/09/16 11:19 Laboratory Results 07/07/16 05:15 07/09/16 03:47 07/08/16 07/09/16 07/10/16 05:59 05:59 05:59 Intake Total 1900 1370 240 Output Total 767 607 1659 Balance 1325 1120 -1210 - Physical Exam Constitutional: obese Eyes: anicteric sclera Ears, Nose, Mouth, Throat: moist mucous membranes Cardiovascular: regular rate and rhythym, systolic murmur Respiratory: no respiratory distress, no rales or rhonchi Gastrointestinal: normoactive bowel sounds, soft, non-tender abdomen Genitourinary: no bladder fullness Skin: warm, normal color Musculoskeletal: No asymmetric calves Neurologic: AAOx3 Psychiatric: interacting appropriately Lymph, Heme, Immunologic: no cervical LAD ICD10 Worksheet Patient Problems: Problems Problem Status Diagnosed Ventricular tachycardia Acute Atrial fibrillation Acute Cardiomyopathy Acute
--- NOTE | 2016-07-09 13:07 | GDS ---
[f rep st] DISCHARGE SUMMARY DISCHARGE DIAGNOSES: 1. Nonischemic cardiomyopathy with an ejection fraction of 20%, alcohol versus tachycardic induced. 2. Ventricular tachycardia status post shock from his LifeVest, currently on amiodarone. 3. Mild nonobstructive coronary artery disease by angiogram on June 17, 2016. 4. Systolic congestive heart failure. 5. Chronic atrial fibrillation. 6. Obesity. 7. Diabetes. 8. Chronic anemia. HOSPITAL COURSE: For detailed H and P, please see prior dictation. Briefly, Kelby Olmstead is a 61-year-old male, who was hospitalized approximately a month ago with a nonischemic cardiomyopathy. At that time, his ejection fraction was measured at 20%, and was thought to be related to either alcohol use versus a tachycardic induced cardiomyopathy. An angiogram at that time revealed mild nonobstructive coronary disease. He was discharged home with a LifeVest, and presented back to the hospital on July 03 with a discharge from his device. He was having episodes of ventricular tachycardia while down in the emergency room. He was started on IV amiodarone, and his beta cinthia was increased. He has been monitored on telemetry and has continued to have nonsustained episodes of ventricular tachycardia, but no sustained events. He also has known chronic atrial fibrillation, and his rates have improved with titrating his beta cinthia in addition of amiodarone. His heart rate is now running in the 60s to 80s on a regular basis. On admission, he was also found to be in systolic congestive heart failure. He was started on IV Lasix. On July 01, he was also given a dose of metolazone. He has diuresed and is currently at his baseline. During this hospitalization, he did have a consultation with a promotional demonstrator secondary to his obesity and diabetes. He also has known chronic anemia, and was started on iron. He will need further outpatient workup with a colonoscopy as well. Prior to discharge, his LifeVest was updated or replaced, and is working properly. He currently denies any chest discomfort, but does have chronic shortness of breath. This did improve from his admission. PHYSICAL EXAMINATION: GENERAL: Patient appears in no acute distress. He is obese. VITALS: Blood pressure 90/48, heart rate 76, oxygen saturation 93% on 2 L, afebrile. LUNGS: Clear to auscultation. No wheezes, rhonchi, or crackles auscultated. CARDIAC: Irregular rate and rhythm. EXTREMITIES: Palpable pulses bilaterally without any evidence of edema. LABORATORY: The day of discharge, his sodium was 138, potassium 4.5, chloride 100, bicarb 31, BUN 20, creatinine 0.9, hemoglobin 7.7, hematocrit 27.7, platelets 151. DISCHARGE MEDICATIONS: He will begin amiodarone 200 mg daily and spironolactone 25 mg daily. His metoprolol has been increased to metoprolol succinate 200 mg daily. He will continue metformin 1000 mg twice daily, glipizide 5 mg twice daily, Lasix 40 mg twice daily, iron 325 mg twice daily, oxycodone p.r.n. for pain, Xarelto 20 mg daily, Protonix 40 mg daily, multivitamin daily, lisinopril 20 mg twice daily, Lantus 30 units subcu at bedtime, gabapentin 600 mg twice daily, Breo Ellipta daily, Lipitor 10 mg daily , albuterol p.r.n. PLAN: Kelby is currently ready for discharge home with his LifeVest in place. He has a nonischemic cardiomyopathy with ventricular tachycardia secondary to ETOH abuse or tachycardic induced. He has been encouraged to refrain from alcohol use. His rates are better controlled with Amiodarone and Metoprolol. He will have a echo 3 months from his last hospitalization. If his EF remains low he would be a candidate for a Bi V ICD. I doubt an AV abigail ablation will be necessary given that his rates are better controlled. He will try to focus on weight loss and continue his medications as prescribed. He will be scheduled for a followup visit in our office in the next 1-2 weeks. Lastly, he will need further workup of his anemia with a colonoscopy. In the meantime, he will continue iron therapy. Greater than 30 minutes were spent coordinating the patient's care today. /[id number]/MODL MTDD
== END 2016-07-09 13:51 | disposition home or self-care (01) | DRG 308 ==
LOC: F2N 22:13 → F2W 07-07 12:01
PROVIDERS: ADMIT Internal Medicine Cardiovascular Disease; ATTEND Internal Medicine Cardiovascular Disease
DX: I47.2 Ventricular tachycardia (principal); I50.23 Acute on chronic systolic (congestive) heart failure; I42.9 Cardiomyopathy, unspecified; I25.10 Atherosclerotic heart disease of native coronary artery without angina pectoris; I48.2 Chronic atrial fibrillation; E66.01 Morbid (severe) obesity due to excess calories; E11.9 Type 2 diabetes mellitus without complications; D50.9 Iron deficiency anemia, unspecified; F10.10 Alcohol abuse, uncomplicated; Z72.0 Tobacco use; G47.33 Obstructive sleep apnea (adult) (pediatric); E78.5 Hyperlipidemia, unspecified; I11.0 Hypertensive heart disease with heart failure; B19.20 Unspecified viral hepatitis C without hepatic coma; Z23 Encounter for immunization
CPT/HCPCS: 82947-QW; 96374; G0009; J0282; J1815; J3475

== ENCOUNTER → 2016-08-13 | Outpatient (CLI) | payer OTHER ==
[~2016-08-13] MED LIST: IOPAMIDOL (ISOVUE-300) 100 ML BTL IV ONE
== END ==
LOC: FIMAGING 13:49
PROVIDERS: ATTEND Internal Medicine Infectious Disease
DX: R16.0 Hepatomegaly, not elsewhere classified (principal); R59.0 Localized enlarged lymph nodes; I70.0 Atherosclerosis of aorta; B19.20 Unspecified viral hepatitis C without hepatic coma
CPT/HCPCS: 74160; Q9967

== ENCOUNTER → 2016-08-14 | Outpatient (CLI) | payer OTHER | LOC: FIMAGING 08:28 | PROVIDERS: ATTEND Internal Medicine Infectious Disease | DX: R16.0 Hepatomegaly, not elsewhere classified (principal); K76.9 Liver disease, unspecified; R59.9 Enlarged lymph nodes, unspecified; B19.20 Unspecified viral hepatitis C without hepatic coma; Z95.810 Presence of automatic (implantable) cardiac defibrillator | CPT/HCPCS: 74160; Q9967 ==

== ENCOUNTER → 2016-08-16 | Outpatient (CLI) | payer OTHER | LOC: FIMAGING 06:35 | PROVIDERS: ATTEND Internal Medicine Infectious Disease | DX: R93.8 Abnormal findings on diagnostic imaging of other specified body structures (principal); K66.8 Other specified disorders of peritoneum; B18.2 Chronic viral hepatitis C ==

== ENCOUNTER 2016-10-01 09:43 | Observation (INO) | payer OTHER, MEDICAID ==
--- NOTE | 2016-10-01 10:10 | EDPHY ---
H & P Time Seen by Provider: 10/01/16 10:10 HPI/ROS: CHIEF COMPLAINT: Life vest alarming HISTORY OF PRESENT ILLNESS: This 61-year-old man has a history of ventricular tachycardia and atrial fibrillation, and is wearing a defibrillator life vest. He presents because his alarm on his life vest was going off every few minutes all night long for the past 2 nights. His last alarm was at 8:30 a.m. He did not get any shocks. The tells me that they contacted the manufacture and they told him his heart rate was 190-200 several times last night. Patient denies chest pain or syncope. He was a little short of breath this morning but then when he put on his usual oxygen his symptoms completely went away. REVIEW OF SYSTEMS: Eye: no change in vision ENT: no sore throat Cardiac: no chest pain or syncope Pulmonary: HPI, slight nonproductive cough, chronic. Abdomen: no vomiting, diarrhea, abdominal pain Musculoskeletal: no back pain Skin: no rash Neuro: no headache Constitutional: no fever : no urinary symptoms A comprehensive 10 point review of systems is otherwise negative aside from elements mentioned in the history of present illness. PAST MEDICAL HISTORY: Discharge summary dated 07/09/2016 personally reviewed. Includes nonischemic cardiomyopathy with an ejection fraction of 20%, ventricular tachycardia on amiodarone wearing a LifeVest, congestive heart failure systolic, atrial fibrillation, diabetes, anemia. Social history: Ex smoker, no alcohol General Appearance: Alert and conversant, cooperative. Eyes: No scleral icterus. ENT, Mouth: Normal mucous membranes. Respiratory: Normal respiratory effort, breath sounds equal, lungs are clear to auscultation. Cardiovascular: Irregular rate and rhythm. Gastrointestinal: Abdomen is soft and non tender. Neurological: Alert and oriented x3. Normally conversant. Face symmetric, normal movement and sensation in all [id number]: ities. Skin: Warm and dry, mild bilateral venous stasis changes both extremities. Musculoskeletal: Bilateral pedal edema, chronic. Psychiatric: Not agitated. Emergency Department course/MDM: Call is made to Cardiology to find out the results of his up-loaded life vest data. 1042: Discussed with Kaiden who will investigate and call me back. 1050: per Neha Richey to see personally in ED. Patient was seen by Dr. Solomon who recommends admission, apparently was having atrial fibrillation with rapid ventricular rate. Smoking Status: Former smoker Constitutional: Initial Vital Signs Temperature (C) 36.6 C 10/01/16 09:51 Heart Rate 106 H 10/01/16 09:51 Respiratory Rate 24 H 10/01/16 09:51 Blood Pressure 126/85 H 10/01/16 09:51 O2 Sat (%) 91 L 10/01/16 09:51 O2 Delivery Mode Room Air O2 (L/minute) 2 Allergies/Adverse Reactions: No Known Allergies Allergy (Verified 10/01/16 09:49) Home Medications: Medication Instructions Recorded Atorvastatin Calcium [Lipitor 10 10 mg PO DAILY 06/17/16 mg (*)] Fluticasone/Vilanterol [Breo 1 each IH DAILY 06/17/16 Ellipta 100-25 Mcg INH] Insulin Glargine [Lantus 100 30 units SC HS 06/17/16 UNITS/ML (*)] Lisinopril [Zestril 20 mg (*)] 20 mg PO DAILY 06/17/16 Multivitamins [Multivitamin (*)] 1 each PO DAILY 06/17/16 Pantoprazole Sodium [Protonix 40mg 20 mg PO DAILY 06/17/16 (*)] Rivaroxaban [Xarelto 10mg (*)] 20 mg PO HS 06/17/16 glipiZIDE [Glipizide] 5 mg PO BIDMEAL 06/17/16 metFORMIN HCL [Glucophage 500 mg 1,000 mg PO BIDMEAL 06/17/16 (*)] oxyCODONE/APAP 5/325 [Percocet 1 tab PO Q6 PRN 06/17/16 5/325 (*)] Amiodarone HCl [Pacerone (*)] 200 mg PO DAILY #30 tab 07/09/16 Ferrous Sulfate [Ferrous Sulf 325 325 mg PO BID #0 tab 07/09/16 MG (*)] Metoprolol Succinate Xr [Toprol Xl 200 mg PO DAILY #60 tab.sr 07/09/16 100 mg (*)] Spironolactone [Aldactone 25 MG 25 mg PO DAILY #30 tab 07/09/16 (*)] Furosemide [Lasix 80 MG (*)] 80 mg PO DAILY 10/01/16 Gabapentin [Neurontin 300 MG (*)] 1,200 mg PO BID 10/01/16 Ibuprofen [Motrin (*)] 800 mg PO TID PRN 10/01/16 Medical Decision Making - Diagnostics EKG Interpretation: 12-lead EKG interpreted by me; official reading is in trace master. My interpretation is atrial fibrillation with low voltage in frontal leads. Imaging Results: Imaging Impressions Chest X-Ray 10/01/16 10:23 Impression: Cardiomegaly. No failure or acute change since June 2016. Differential Diagnosis: Differential considered including but not limited to atrial fibrillation, ventricular tachycardia, false alarm, bradycardia. Consult/Admit Bed Type: [place] [id number] admit to him, PCU - Data Points Laboratory Results: Laboratory Results 10/01/16 10:25 10/01/16 10:25 10/01/16 10/01/16 10:25 10:25 WBC 5.04 10^3/uL 10^3/uL (3.80-9.50) RBC 4.86 10^6/uL 10^6/uL (4.40-6.38) Hgb 11.6 g/dL L g/dL (13.7-17.5) Hct 37.8 % L % (40.0-51.0) MCV 77.8 fL L fL (81.5-99.8) MCH 23.9 pg L pg (27.9-34.1) MCHC 30.7 g/dL L g/dL (32.4-36.7) RDW 23.3 % H % (11.5-15.2) Plt Count 130 10^3/uL L 10^3/uL (150-400) MPV TNP Neut % (Auto) 57.7 % % (39.3-74.2) Lymph % (Auto) 22.2 % % (15.0-45.0) [place] % (Auto) 13.1 % H % (4.5-13.0) Eos % (Auto) 5.6 % % (0.6-7.6) Baso % (Auto) 1.0 % % (0.3-1.7) Nucleat RBC Rel Count 0.0 % % (0.0-0.2) Absolute Neuts (auto) 2.91 10^3/uL 10^3/uL (1.70-6.50) Absolute Lymphs (auto) 1.12 10^3/uL 10^3/uL (1.00-3.00) Absolute Monos (auto) 0.66 10^3/uL 10^3/uL (0.30-0.80) Absolute Eos (auto) 0.28 10^3/uL 10^3/uL (0.03-0.40) Absolute Basos (auto) 0.05 10^3/uL 10^3/uL (0.02-0.10) Absolute Nucleated RBC 0.00 10^3/uL 10^3/uL (0-0.01) Immature Gran % 0.4 % % (0.0-1.1) Immature Gran # 0.02 10^3/uL 10^3/uL (0.00-0.10) Platelet Estimate DECREASED L (ADEQ) Hypochromasia 1+ H Microcytic Cells 1+ H Sodium 140 mEq/L mEq/L (134-144) Potassium 4.9 mEq/L mEq/L (3.5-5.2) Chloride 102 mEq/L mEq/L (97-110) Carbon Dioxide 26 mEq/l mEq/l (22-31) Anion Gap 12 mEq/L mEq/L (8-16) BUN 30 mg/dL H mg/dL (7-23) Creatinine 1.0 mg/dL mg/dL (0.7-1.3) Estimated GFR > 60 Glucose 233 mg/dL H mg/dL (70-100) Calcium 9.2 mg/dL mg/dL (8.5-10.4) Troponin I < 0.012 ng/mL ng/mL (0-0.034) Departure - Departure Disposition: [facility] Inpatient Acute Clinical Impression: Cardiomyopathy Qualifiers: Cardiomyopathy type: unspecified Qualified Code(s): I42.9 - Cardiomyopathy, unspecified Atrial fibrillation Qualifiers: Atrial fibrillation type: unspecified Qualified Code(s): I48.91 - Unspecified atrial fibrillation Condition: Good
--- NOTE | 2016-10-01 10:24 | CPEKG ---
Heart Rate: 96 RR Interval: 625 QRSD Interval: 100 QT Interval: 380 QTC Interval: 481 QRS Boyd: 17 T Wave Boyd: -67 EKG Severity - ABNORMAL ECG - EKG Impression: ATRIAL FIBRILLATION EKG Impression: LOW VOLTAGE IN FRONTAL LEADS EKG Impression: BORDERLINE R WAVE PROGRESSION, ANTERIOR LEADS EKG Impression: BORDERLINE T ABNORMALITIES, INFERIOR LEADS EKG Impression: BORDERLINE PROLONGED QT INTERVAL Electronically Signed By: Camilo Joseph 01-Oct-2016 10:24:49
[2016-10-01 10:50] LABS: % IMMATURE GRANULYOCYTES 0.4 % (0.0-1.1); ABSOLUTE IMMATURE GRANULOCYTES 0.02 10^3/uL (0.00-0.10); ADD DIFF? NO; ADD MORPH? YES; ADD SCAN? NO; ATYPICAL LYMPHOCYTE FLAG 20 (0-99); FRAGMENT RBC FLAG 40 (0-99); HEMATOCRIT 37.8 % (40.0-51.0); HEMOGLOBIN 11.6 g/dL (13.7-17.5); LEFT SHIFT FLG 0 (0-99); LIPEMIA HEMOLYSIS FLAG 80 (0-99); MEAN CELL HEMOGLOBIN 23.9 pg (27.9-34.1); MEAN CELL HEMOGLOBIN CONCENTR. 30.7 g/dL (32.4-36.7); MEAN CELL VOLUME 77.8 fL (81.5-99.8); PLATELET CLUMPS FLAG 20 (0-99); PLATELET COUNT 130 10^3/uL (150-400); RED BLOOD CELL COUNT 4.86 10^6/uL (4.40-6.38)
[2016-10-01 10:51] LABS: RED CELL DISTRIBUTION WIDTH 23.3 % (11.5-15.2)
[2016-10-01 11:09] LABS: ANION GAP 12 mEq/L (8-16); CALCIUM 9.2 mg/dL (8.5-10.4); CARBON DIOXIDE 26 mEq/l (22-31); CHLORIDE 102 mEq/L (97-110); GLOMERULAR FILTRATION RATE > 60; GLUCOSE 233 mg/dL (70-100); POTASSIUM 4.9 mEq/L (3.5-5.2); SODIUM 140 mEq/L (134-144)
[2016-10-01 11:18] LABS: HYPOCHROMIA 1+; MICROCYTES 1+; PLATELET ESTIMATE DECREASED (ADEQ)
[2016-10-01 11:20] LABS: TROPONIN I < 0.012 ng/mL (0-0.034)
[2016-10-01] MEDS ORDERED: LORazepam 0.5 MG TAB PO PRN (13:10)
[2016-10-01] MEDS ORDERED: TEMAZEPAM 15 MG CAP PO PRN (13:10)
[2016-10-01] MEDS ORDERED: ACETAMINOPHEN 325 MG TAB PO PRN (13:10)
--- NOTE | 2016-10-01 14:41 | GHP ---
[f rep st] HISTORY AND PHYSICAL DATE OF ADMISSION: 10/01/2016 HISTORY OF PRESENT ILLNESS: The patient is a 61-year-old male with a history of alcohol use, tobacco use, COPD, morbid obesity with a BMI of 44, permanent atrial fibrillation, non ischemic cardiomyopathy, who is being admitted for rate control of his atrial fibrillation. He presented today with alarms going off on his LifeVest that was suggestive of ventricular tachycardia. Dr. Solomon has reviewed the strips and feels that this is atrial fibrillation with aberrancy and rapid ventricular rates. The patient denies any presyncope, syncope, chest pain, dyspnea, PND, orthopnea, or peripheral edema. He also reports that he has recently been diagnosed with liver cancer. He has met with his oncologist, and there are next steps in place to meet with Radiation Oncology for further discussion of treatment plan. He denies any current abdominal pain. PAST MEDICAL HISTORY: 1. Nonischemic cardiomyopathy with an EF of 20% that was tachy mediated as well as related to alcohol intake. 2. History of permanent atrial fibrillation. 3. [id number] CAD based on cardiac catheterization from June. 4. Mild pulmonary hypertension. 5. Previous VT. 6. Hypertension. 7. History of PAD. 8. Type 2 diabetes mellitus. 9. Hypertension. 10. RADHA on CPAP. 11. Morbid obesity. 12. Hepatitis C. 13. Liver cancer and cirrhosis. 14. Chronic anemia. PAST SURGICAL HISTORY: Cervical spine fusion and exploratory laparotomy. OUTPATIENT MEDICATIONS: Include: Percocet, metformin, glipizide, spironolactone, rivaroxaban, Protonix, multivitamin, Toprol, lisinopril, insulin glargine, gabapentin, furosemide, Breo Ellipta, ferrous sulfate, atorvastatin, amiodarone, and albuterol. His medications have yet to be reconciled. ALLERGIES: No known drug allergies. FAMILY HISTORY: CHF, CAD, CVAs, and TIAs. SOCIAL HISTORY: Patient is . He has 5 children. He reports no further alcohol intake. He reports he has quit smoking. REVIEW OF SYSTEMS: As per HPI. A complete 10-point review of systems was obtained and is negative except for what is dictated. PHYSICAL EXAM: VITAL SIGNS: Blood pressure of 131/96, heart rate of 90, respirations 18, O2 saturation 96% on room air. GENERAL: He is a pleasant male in no apparent distress. HEENT: Sclerae are anicteric. Mucous membranes moist. HEART: Regular rate and rhythm with no rubs, gallops, or murmurs. LUNGS: Clear. ABDOMEN: Obese, nontender, with normoactive bowel sounds. : No Damon present. SKIN: Warm and dry. EXTREMITIES: 1+ edema in the ankles. PSYCH: Normal mood and affect. NEURO: No focal deficits detected. LABORATORY DATA: CBC with WBC 5.04, hemoglobin 11.6, hematocrit 37.8, platelet count of 130. BMP with sodium 140, potassium 4.9, chloride 102, CO2 26, BUN 30 , creatinine 1, glucose 233. Troponin less than 0.012. A 12-lead ECG personally interpreted demonstrates atrial fibrillation with slow R-wave progression, mild diffuse ST-T wave abnormalities. Chest x-ray reviewed shows cardiomegaly without failure present. Office echo reviewed from 09/16/2016 shows [id number] dilated left ventricle with mild concentric LVH. EF is 40% to 45%. IMPRESSION AND PLAN: The patient is a 61-year-old male being admitted for atrial fibrillation with rapid ventricular rates. 1. Atrial fibrillation with rapid ventricular rates. His rates are suboptimally controlled. He has some atrial fibrillation with aberrancy. Given that his ejection fraction has now improved to low normal, the plan is to remove the LifeVest. His metoprolol dose will be titrated to optimize rate control. He will be admitted overnight for observation. 2. Nonischemic cardiomyopathy. His ejection fraction has improved. He will be continued on medical management as well as recommendations for permanent alcohol cessation. 3. Chronic anemia. His hemoglobin is above his typical baseline. His ferrous sulfate dosing will be continued after medications are reconciled. 4. Liver cancer. He has started workup with outpatient oncology, and he may follow up with them on an outpatient basis. 5. Deep venous thrombosis prophylaxis. His home Xarelto will be continued. 6. Anticipated length of stay: He will likely be an observation admission. If further treatments are warranted, he may require transition to inpatient status. Addendum Kaden Griffith visited with the patient's family in the emergency department. I have also [facility], these are consistent with atrial fibrillation with intermittent rapid ventricular response. No ventricular tachycardia has been noted. Patient 's left ventricular ejection fraction has increased to 45%. The LifeVest can be discontinued at this time. Will admit the patient to the hospital for monitoring while we are increasing his beta-cinthia dose. Of note, the patient also has had a recent diagnosis of hepatic carcinoma, has a history of hepatitis -C, and is going to start treatment for his hepatic carcinoma. We will defer further management of atrial fibrillation except for rate control until the cancer diagnosis has been addressed and it has been treated. In the long-term, if his prognosis is good and ventricular rates are not controlled, we will plan on biventricular pacemaker implantation and AV node ablation, I do not want to do this at this time especially if he is going to be immunocompromised related to treatment of his hepatic carcinoma. /[id number]/MODL MTDD
[2016-10-01] MEDS ORDERED: OXYCODONE/APAP 5/325 TAB PO PRN (15:07)
[2016-10-01] MEDS ORDERED: IBUPROFEN 800 MG TAB PO PRN (15:07)
[2016-10-01] MEDS: METOPROLOL SUCCINATE XR 100 MG TAB PO SCH ×2 (16:16→21:19)
[2016-10-01] MEDS: glipiZIDE 5 MG TAB PO SCH (17:28)
[2016-10-01] MEDS: metFORMIN HCL 500 MG TAB PO SCH (17:28)
[2016-10-01] MEDS: FERROUS SULFATE 325 MG TAB PO SCH (20:03)
[2016-10-01] MEDS: GABAPENTIN 300 MG CAP PO SCH (20:03)
[2016-10-01] MEDS ORDERED: INSULIN GLARGINE 100 UNITS/ML SYRINGE SC SCH (21:00)
[2016-10-01] MEDS ORDERED: RIVAROXABAN 20 MG TAB PO SCH (21:00)
[2016-10-02 05:16] VITALS: O2SAT 94
[2016-10-02] MEDS: glipiZIDE 5 MG TAB PO SCH (07:25)
[2016-10-02 07:53] VITALS: BP 118/82; PULSE 98; RESP 18; TEMP 98
[2016-10-02] MEDS: GABAPENTIN 300 MG CAP PO SCH (08:46)
[2016-10-02] MEDS: FERROUS SULFATE 325 MG TAB PO SCH (08:47)
[2016-10-02] MEDS: METOPROLOL SUCCINATE XR 100 MG TAB PO SCH (08:48)
[2016-10-02] MEDS: metFORMIN HCL 500 MG TAB PO SCH (08:48)
[2016-10-02] MEDS ORDERED: MULTIVITAMINS 1 EACH TAB PO SCH (09:00)
[2016-10-02] MEDS ORDERED: LISINOPRIL 20 MG TAB PO SCH (09:00)
[2016-10-02] MEDS ORDERED: PANTOPRAZOLE SODIUM 40 MG TAB PO SCH (09:00)
[2016-10-02] MEDS ORDERED: AMIODARONE HCL 200 MG TAB PO SCH (09:00)
[2016-10-02] MEDS ORDERED: Fluticasone/Vilanterol [Breo Ellipta 100-25 Mcg Inh] 1 EACH IH SCH (09:00)
[2016-10-02] MEDS ORDERED: FUROSEMIDE 80 MG TAB PO SCH (09:00)
[2016-10-02] MEDS ORDERED: ATORVASTATIN CALCIUM 10 MG TAB PO SCH (09:00)
[2016-10-02] MEDS ORDERED: SPIRONOLACTONE 25 MG TAB PO SCH (09:00)
--- NOTE | 2016-10-02 13:49 | GDS ---
[f rep st] DISCHARGE SUMMARY DISCHARGE DIAGNOSES: 1. Atrial fibrillation with aberrancy with rapid ventricular rates. Admitted for rate control. 2. History of ventricular tachycardia. 3. History of nonischemic cardiomyopathy with an EF as low as 20%. Likely tachy and mediated, and alcohol induced. Now with improvement of ejection fraction up to 40% to 45% currently. 4. History of permanent atrial fibrillation. 5. Mjlv-ed-tsazqnaj coronary artery disease. 6. Mild pulmonary hypertension. 7. Hypertension. 8. History of peripheral artery disease. 9. Type 2 diabetes mellitus. 10. Obstructive sleep apnea on CPAP. 11. Morbid obesity. 12. Hepatitis C. 13. Liver cancer and cirrhosis. 14. Chronic anemia. PROCEDURES: None. BRIEF HISTORY: Please see dictated H and P for complete details. In brief, the patient is a 61-yea r-old male with a history of alcohol use, tobacco use, COPD, hypoxic respiratory failure on O2 suppl ementally, morbid obesity with a BMI of 44, permanent atrial fibrillation, nonischemic cardiomyopath y, who presented after his LifeVest was alarming. Strips were reviewed and this showed AFib with ab errancy and rapid ventricular rates. Due to improvement in his ejection fraction on most recent ech o, the LifeVest was discontinued in this admission. His metoprolol dose was titrated to 100 t.i.d. He has tolerated the increase and his vital signs are stable on day of discharge. PHYSICAL EXAM: VITAL SIGNS: On day of discharge, BP of 118/82, heart rate 98, respirations 18, O2 saturation 94 on 2.5 L/min, temp of 98.2 degrees Fahrenheit. GENERAL: He is a very pleasant male i n no apparent distress. HEART: Irregularly irregular with no audible rubs, gallops, or murmurs. L UNGS: Clear. ABDOMEN: Obese. SKIN: Warm and dry. RESULTS PENDING: None. DIET: Cardiac and diabetic diet is recommended. ACTIVITY: As tolerated. DISCHARGE MEDICATIONS: Please see med reconciliation for complete details. He is being discharged on all his home medications, which include ibuprofen, Neurontin, Breo Ellipta, ferrous sulfate, ator vastatin, amiodarone, glipizide, spironolactone, Xarelto, pantoprazole, multivitamin, lisinopril, in sulin glargine, Percocet, metformin, and Lasix. His metoprolol dose was increased to 100 t.i.d. FOLLOWUP: With Dr. Solomon as scheduled in clinic for 10/17/2016. /[id number]/MODL
== END 2016-10-02 10:31 | disposition home or self-care (01) ==
LOC: F2W 14:46
PROVIDERS: ADMIT Internal Medicine Cardiovascular Disease; ATTEND Internal Medicine Cardiovascular Disease
DX: I48.91 Unspecified atrial fibrillation (principal); I42.9 Cardiomyopathy, unspecified; I25.10 Atherosclerotic heart disease of native coronary artery without angina pectoris; I27.2 Other secondary pulmonary hypertension; I10 Essential (primary) hypertension; E11.9 Type 2 diabetes mellitus without complications; G47.33 Obstructive sleep apnea (adult) (pediatric); E66.01 Morbid (severe) obesity due to excess calories; B19.20 Unspecified viral hepatitis C without hepatic coma; D64.9 Anemia, unspecified; C22.9 Malignant neoplasm of liver, not specified as primary or secondary; J44.9 Chronic obstructive pulmonary disease, unspecified; Z68.41 Body mass index [BMI] 40.0-44.9, adult; I50.20 Unspecified systolic (congestive) heart failure; I73.9 Peripheral vascular disease, unspecified; Z87.891 Personal history of nicotine dependence; Z95.811 Presence of heart assist device; Z82.49 Family history of ischemic heart disease and other diseases of the circulatory system; Z79.01 Long term (current) use of anticoagulants
CPT/HCPCS: 71020; 93005; 99285; G0378; J1815

== ENCOUNTER → 2016-10-14 | Outpatient (CLI) | payer OTHER, MEDICAID | LOC: FIMAGING 15:20 | PROVIDERS: ATTEND Internal Medicine Hematology & Oncology | DX: C22.0 Liver cell carcinoma (principal) ==

== ENCOUNTER → 2016-10-24 | Day surgery (SDC) | payer OTHER, MEDICAID ==
[~2016-10-24] MED LIST changes: +HEPARIN 10,000 UNIT/10 ML MDV ONE; -IOPAMIDOL (ISOVUE-300) 100 ML BTL IV ONE; +IOPAMIDOL (ISOVUE-300) 100 ML BTL ONE; +NS 1,000 ML IV SCH
[2016-10-24 08:48] LABS: GLOMERULAR FILTRATION RATE > 60
[2016-10-24 09:18] LABS: INR 1.72 (0.83-1.16); PROTIME(PATIENT) 20.2 SEC (12.0-15.0)
[2016-10-24 09:19] LABS: APTT 30.4 SEC (23.0-38.0)
== END | disposition home or self-care (01) ==
LOC: FIMAGING 06:55
PROVIDERS: ATTEND Radiology Diagnostic Radiology
PROC: 04H333Z Insertion of Infusion Device into Hepatic Artery, Percutaneous Approach (ICD-10-PCS; principal; 2016-10-24)
DX: C22.0 Liver cell carcinoma (principal)
CPT/HCPCS: 36247; 36248; 75726; 78201; 99152; A9540; C1769; C1894; J1644; Q9967

== ENCOUNTER → 2016-11-14 | Day surgery (SDC) | payer OTHER, MEDICAID ==
[~2016-11-14] MED LIST changes: +FLUMAZENIL 0.5 MG/5 ML MDV IVP ONE; -HEPARIN 10,000 UNIT/10 ML MDV ONE; +MIDAZOLAM 2 MG/2 ML VIAL ONE; +NALOXONE HCL 0.4 MG/ML INJ ONE; -NS 1,000 ML IV SCH; +fentaNYL 100 MCG/2 ML INJ ONE; +methylPREDNISolone SOD SUCC 125 MG/2 ML VIAL ONE
== END | disposition home or self-care (01) ==
LOC: FIMAGING 10-24 07:00
PROVIDERS: ATTEND Radiology Diagnostic Radiology
PROC: B44LZZZ Ultrasonography of Femoral Artery (ICD-10-PCS; principal; 2016-11-14)
PROC: 04L Lower Arteries, Occlusion (ICD-10-PCS; principal; 2016-11-14)
PROC: 04H333Z Insertion of Infusion Device into Hepatic Artery, Percutaneous Approach (ICD-10-PCS; principal; 2016-11-14)
DX: C22.0 Liver cell carcinoma (principal)
CPT/HCPCS: 36247; 37243; 75726; 77790; 78201; 79445; 99152; 99153; C1769; C1894; C1760; J1200; J1644; J2250; J2310; J3010; Q9967

== ENCOUNTER → 2017-03-18 | Outpatient (CLI) | payer OTHER, MEDICAID ==
[~2017-03-18] MED LIST changes: -FLUMAZENIL 0.5 MG/5 ML MDV IVP ONE; -MIDAZOLAM 2 MG/2 ML VIAL ONE; -NALOXONE HCL 0.4 MG/ML INJ ONE; -fentaNYL 100 MCG/2 ML INJ ONE; -methylPREDNISolone SOD SUCC 125 MG/2 ML VIAL ONE
== END ==
LOC: FIMAGING 11:26
PROVIDERS: ATTEND Internal Medicine
DX: R16.0 Hepatomegaly, not elsewhere classified (principal); K76.9 Liver disease, unspecified; K74.69 Other cirrhosis of liver; K80.20 Calculus of gallbladder without cholecystitis without obstruction
CPT/HCPCS: 74160; Q9967

== ENCOUNTER → 2017-10-01 | Outpatient (CLI) | payer OTHER, MEDICAID | LOC: FIMAGING 15:25 | PROVIDERS: ATTEND Internal Medicine Cardiovascular Disease | DX: I48.91 Unspecified atrial fibrillation (principal); Z79.899 Other long term (current) drug therapy ==